=== PATIENT | male | born 1930 | race Caucasian/White ===

== ENCOUNTER 2016-09-11 14:04 | Inpatient (IN) | payer MEDICARE, OTHER ==
[2016-09-11] MEDS ORDERED: SODIUM CHLORIDE 0.9% 500 ML INFUS.BAG IV ONE (14:23)
--- NOTE | 2016-09-11 14:56 | PDOC ---
History of Present Illness - General Chief Complaint: Pain Stated Complaint: ABD PAIN Time Seen by Provider: 09/11/16 14:14 History Source: Patient Exam Limitations: No Limitations - History of Present Illness Travel History: No Initial Comments: 09/11/16 20:06 The patient is a 86 year old male, with a significant past medical history of HTN, BPH, GERD, afib on xerolto, who presents to the emergency department with right testicular hernia for 6 weeks. He ranks his pain a 8/10 in pain intensity. He also notes having a significant loss of appetite. Patient notes also having diarrhea for the past couple of days without any abdomonial pain. He denies any recent fevers, chills, headache or dizziness. He denies any recent nausea, vomit, or constipation. Patient is a poor historian. Allergies: NKA Past surgical history: Appendectomy. Social History: Nonsmoker. Denies EtOH and drug use. PCP: Past History - Past Medical History Allergies/Adverse Reactions: Allergies Allergy/AdvReac Type Severity Reaction Status Date / Time No Known Allergies Allergy Verified 09/11/16 14:17 Home Medications: Ambulatory Orders Amlodipine Bes/Olmesartan Med [Lisa 5-40 mg Tablet] 1 each PO DAILY 02/02/13 Multivitamin [Multivitamins] 1 each PO DAILY 02/02/13 [place]-3 Acid Ethyl Esters [Lovaza] 2,000 mg PO BID 02/02/13 Aspirin [ASA -] 81 mg PO DAILY #0 tab.chew 02/09/13 Carvedilol Phosphate [Coreg Cr -] 40 mg PO DAILY #0 capsule.sa 02/09/13 Megestrol Acetate Oral Susp [Megace Oral Suspension -] 200 mg PO DAILY #0 cup Multivitamins [Multivit ([facility] Formul[facility])] 1 udtab PO DAILY #0 tab 02/09/13 Pantoprazole Sodium [Protonix -] 40 mg PO DAILY #0 tablet.ec 02/09/13 Polyethylene Glycol 3350 [Miralax 255 gm Btl -] 17 gm PO DAILY #1 bottle Tamsulosin HCl [Flomax -] 0.4 mg PO DAILY@0830 #0 cap.er.24h 02/09/13 Ursodiol [Actigal -] 300 mg PO TIDCM #0 capsule 02/09/13 Olmesartan/Hydrochlorothiazide [Olmesartan-Hctz 20-12.5 mg Tab] 1 each PO DAILY 09/11/16 Rivaroxaban [Xarelto -] 20 mg PO DAILY 09/11/16 Disorders: Yes HTN: Yes - Surgical History Abdominal Surgery: Yes Appendectomy: Yes - Psycho/Social/Smoking Cessation Hx Suicidal Ideation: No Smoking Status: No Smoking History: Never smoked Have you smoked in the past 12 months: No Number of Cigarettes Smoked Daily: 0 Hx Alcohol Use: No Drug/Substance Use Hx: No Substance Use Type: None Hx Substance Use Treatment: No Review of Systems - Review of Systems Able to Perform ROS?: Yes Comments:: 09/11/16 20:07 CONSTITUTIONAL: +Loss of appetite. generalized weakness No reported: Fever, Chills, Diaphoresis , HEENT: No reported: Rhinorrhea, Nasal Congestion, Throat Pain, Throat Swelling, Difficulty Swallowing, Mouth Swelling, Ear Pain, Eye Pain, Visual Changes CARDIOVASCULAR: No reported: Chest Pain, Syncope, Palpitations, Irregular Heart Rate, Lightheadedness, Peripheral Edema RESPIRATORY: No reported: Cough, Shortness of Breath, SOB with Exertion, Orthopnea, Wheezing , Stridor, Hemoptysis GASTROINTESTINAL: +diarrhea. No reported: Abdominal pain, Abdominal Distension, Nausea, Vomiting, , Constipation, Melena, Hematochezia GENITOURINARY: +testicular hernia. No reported: Dysuria, Frequency, Urgency, Hesitancy, Flank Pain, Genital Pain MUSCULOSKELETAL: No reported: Myalgia, Arthralgia, Joint Swelling, Back pain, Neck Pain SKIN: No reported: Rash, Itching, Pallor HEMEATOLOGIC/IMMUNOLOGIC: No reported: Easy Bleeding, Easy Bruising, Lymphadenopathy, Frequent infections ENDOCRINE: No reported: Unexplained Weight Gain, Unexplained Weight Loss, Heat Intolerance , Cold Intolerance NEUROLOGIC: No reported: Headache, Focal Weakness, Paresthesias, Vertigo, Lightheadedness, Unsteady Gait, Seizure, Mental Status Changes, Incontinence PSYCHIATRIC: No reported: Anxiety, Depression *Physical Exam - Vital Signs Last Vital Signs Temp Pulse Resp BP Pulse Ox 97.8 F 112 H 20 85/54 96 09/11/16 14:17 09/11/16 14:17 09/11/16 14:17 09/11/16 14:17 09/11/16 14:17 - Physical Exam Comments: 09/11/16 20:07 GENERAL: The patient is awake, alert, and fully oriented, Nontoxic - in no acute distress. HEAD: Normocephalic, atraumatic. EYES: extraocular movements intact, sclera anicteric, conjunctiva clear. ENT: Normal voice, dry mucous membranes. NECK: Normal range of motion, supple LUNGS: Breath sounds equal, clear to auscultation bilaterally. No wheezes, no rhonchi, no rales. HEART: tachycardic, slightly irregular ABDOMEN: Mildliy distended abdomen, nontender, no rebound/guarding, no cva tenderness : large mass in R scrotum, nontender, soft, able to reduce components of contents, but mass still present. No significant erythema/induration/tenderness EXTREMITIES: Normal range of motion NEUROLOGICAL: No facial assymetry, Normal speech, moving all 4 extremities spontaneously and symmetrically PSYCH: Normal mood, normal affect. SKIN: Warm, Dry, normal turgor, Heart Score/ECG Review - ECG Impressions Comment:: 09/11/16 17:59 Twelve-lead EKG was performed and reviewed by me. Rate of [address] wave changes ED Treatment Course - LABORATORY CBC & Chemistry Diagram: 09/11/16 15:00 09/11/16 15:00 Medical Decision Making - Medical Decision Making 09/11/16 14:55 86y M hx htn, bph, presents with feeling very fatigued/weak. The patient denies any vomiting, fever/chills, +episode of diarrhea pts abdomen is soft nontender, pt has a mass i the R inguinal/testicular area that is nontender, +soft reducible mass. however there is still some swelling present. ?orchitis, hernia pts vitals noted to be tachycardic as well as mildly hypotensive will ck labs will reassess A portion of this note was documented by scribe services under my direction. I have reviewed the details of the note, within reason, and agree with the documentation with the following case summary and management plan written by me 09/11/16 17:11 pts labs reviewed noted for leukocytosis to 18 with left shift chemistry noted for significant radha, possibly prerenal pts ekg shows afib - unclearif pt has history of afib - but pt is on xerolto awaiting CT abdomen pt getting fluids for hydration 09/11/16 18:[address] of the abdomen reveals a large right inguinal hernia without any signs of obstruction 09/11/16 18:21 pt also complainng of diarrhea in light of his luekocytosis will give the pt some abx will admit for furthe rmanagement of radha page placed to dr. lorenz to ck to see what his baseline renal status is and whether he has known afib (suspect he does as he is on a novel a/c). 09/11/16 19:[address] Lorenz (PMD) pt has known afib last labs 04/2016 - Cr. 1.0 09/11/16 19:[address] rochelle dunlap with admission and further management of dehydration/radha, Case discussed in detail with admitting physician including history, physical exam and ancillary studies. Admitting physician has assumed care for the patient, will follow all pending diagnostics and will complete the evaluation and treatment. 09/11/16 20:09 *DC/Admit/Observation/Transfer Diagnosis at time of Disposition: Inguinal hernia, right Diarrhea Qualifiers: Diarrhea type: unspecified type Qualified Code(s): R19.7 - Diarrhea, unspecified Acute renal failure Qualifiers: Acute renal failure type: unspecified Qualified Code(s): N17.9 - Acute kidney failure, unspecified Atrial fibrillation Qualifiers: Atrial fibrillation type: chronic Qualified Code(s): I48.2 - Chronic atrial fibrillation - Discharge Dispostion Condition at time of disposition: Guarded Admit: Yes - Referrals Referrals: Sera Lorenz MD [Primary Care Provider] -
[2016-09-11 15:06] LABS: BASOPHIL 0.2 % (0-2.0); EOSINOPHIL 0.1 % (0-4.5); MCHC 34.2 g/dl (32.0-35.9); MEAN CELL VOLUME 87.8 fl (80-96); MEAN PLT VOLUME 10.3 fl (7.5-11.1); NEUTROPHILS 90.7 % (42.8-82.8); PLATELET COUNT 347 K/MM3 (134-434); RDW 15.1 % (11.9-15.9); WHITE BLOOD COUNT 18.3 K/mm3 (4.0-10.0)
[2016-09-11 15:21] LABS: INR 2.12 (0.82-1.09); PROTHROMBIN TIME (PATIENT) 23.7 SEC (9.98-11.88)
[2016-09-11 15:30] LABS: ALBUMIN 2.8 g/dl (3.4-5.0); BILIRUBIN,TOTAL 1.2 mg/dL (0.2-1.0); CALCIUM 8.6 mg/dL (8.5-10.1); CREATININE 4.6 mg/dL (0.7-1.3)
[2016-09-11] MEDS ORDERED: LEVOFLOXACIN 750 MG IVPB 150 ML IVPB ONE (18:20)
[2016-09-11] MEDS ORDERED: METRONIDAZOLE 500 MG PREMIXED 100 ML IVPB ONE ×2 (18:20→18:42)
[2016-09-11] MEDS ORDERED: LEVOFLOXACIN 500 MG IVPB 100 ML IVPB ONE (18:42)
[2016-09-11] MEDS ORDERED: LEVOFLOXACIN 250 MG IVPB 50 ML IVPB ONE (18:43)
[2016-09-11] MEDS ORDERED: ACETAMINOPHEN 325 MG TABLET (FP) PO PRN (23:26)
[2016-09-11] MEDS ORDERED: SODIUM CHLORIDE 0.45%/POT 1,000 ML IV SCH (23:45)
[2016-09-12 02:59] VITALS: BMI 30.1
[2016-09-12 07:26] LABS: BASOPHIL 0.4 % (0-2.0); EOSINOPHIL 0.3 % (0-4.5); MCH 29.6 pg (25.7-33.7); MCHC 33.5 g/dl (32.0-35.9); MEAN CELL VOLUME 88.2 fl (80-96); MEAN PLT VOLUME 10.2 fl (7.5-11.1); NEUTROPHILS 86.8 % (42.8-82.8); PLATELET COUNT 333 K/MM3 (134-434); WHITE BLOOD COUNT 11.2 K/mm3 (4.0-10.0)
[2016-09-12 07:57] LABS: ALBUMIN 2.3 g/dl (3.4-5.0); CALCIUM 8.2 mg/dL (8.5-10.1); CREATININE 2.8 mg/dL (0.7-1.3); TOT PROT 5.9 g/dl (6.4-8.2)
--- NOTE | 2016-09-12 09:17 | HP ---
Admitting History and Physical - Admission History of Present Illness: 86 year old male, with a significant past medical history of HTN, BPH, GERD, afib on xerolto, who presents to the emergency department with right inguinal hernia for 6 weeks. He ranks his pain a 8/10 in pain intensity. He also notes having a significant loss of appetite. Patient notes also having diarrhea for the past couple of days without any abdominal pain. He denies any recent fevers , chills, headache or dizziness. He denies any recent nausea, vomit, or constipation. Patient is a poor historian. - Past Medical History Cardiovascular: Yes: AFIB, HTN, Hyperlipdemia Gastrointestinal: Yes: GERD Renal/: Yes: BPH - Smoking History Smoking history: Never smoked Have you smoked in the past 12 months: No Aproximately how many cigarettes per day: 0 - Alcohol/Substance Use Hx Alcohol Use: No Home Medications - Allergies Allergies/Adverse Reactions: Allergies Allergy/AdvReac Type Severity Reaction Status Date / Time No Known Allergies Allergy Verified 09/11/16 14:17 - Home Medications Home Medications: Ambulatory Orders Amlodipine Bes/Olmesartan Med [Lisa 5-40 mg Tablet] 1 each PO DAILY 02/02/13 Multivitamin [Multivitamins] 1 each PO DAILY 02/02/13 [place]-3 Acid Ethyl Esters [Lovaza] 2,000 mg PO BID 02/02/13 Aspirin [ASA -] 81 mg PO DAILY #0 tab.chew 02/09/13 Carvedilol Phosphate [Coreg Cr -] 40 mg PO DAILY #0 capsule.sa 02/09/13 Megestrol Acetate Oral Susp [Megace Oral Suspension -] 200 mg PO DAILY #0 cup Multivitamins [Multivit ([facility] Form[facility])] 1 udtab PO DAILY #0 tab 02/09/13 Pantoprazole Sodium [Protonix -] 40 mg PO DAILY #0 tablet.ec 02/09/13 Polyethylene Glycol 3350 [Miralax 255 gm Btl -] 17 gm PO DAILY #1 bottle Tamsulosin HCl [Flomax -] 0.4 mg PO DAILY@0830 #0 cap.er.24h 02/09/13 Ursodiol [Actigal -] 300 mg PO TIDCM #0 capsule 02/09/13 Olmesartan/Hydrochlorothiazide [Olmesartan-Hctz 20-12.5 mg Tab] 1 each PO DAILY 09/11/16 Rivaroxaban [Xarelto -] 20 mg PO DAILY 09/11/16 Olmesartan-Hctz 40-12.5 mg Tab mg PO DAILY 09/12/16 Olodaterol HCl 0.7 drop OU DAILY 09/12/16 Review of Systems - Review of Systems Cardiovascular: denies: Chest Pain Respiratory: denies: SOB Gastrointestinal: reports: Abdominal Pain, Diarrhea Genitourinary: reports: Testicular Pain, Testicular Swelling Musculoskeletal: reports: Muscle Weakness Neurological: reports: Weakness Physical Examination Vital Signs: Vital Signs Temperature 97.7 F 09/12/16 07:00 Pulse Rate 101 H 09/12/16 07:00 Respiratory Rate 22 09/12/16 07:00 Blood Pressure 86/57 09/12/16 07:00 O2 Sat by Pulse Oximetry (%) 97 09/11/16 23:00 Neck: Yes: Supple Cardiovascular: Yes: S1, S2 Respiratory: Yes: Regular, CTA Bilaterally, Diminished Gastrointestinal: Yes: Normal Bowel Sounds, Soft, Hernia (RT), Tenderness Labs: CBC, BMP 09/12/16 06:10 09/12/16 06:10 Imaging - Results Cat Scan: Report Reviewed Problem List - Problems (1) Acute renal failure Assessment/Plan: IVF MONITOR RENAL FUNCTION RENAL CONSULT Code(s): N17.9 - ACUTE KIDNEY FAILURE, UNSPECIFIED Qualifiers: Acute renal failure type: unspecified Qualified Code(s): N17.9 - Acute kidney failure, unspecified (2) Atrial fibrillation Assessment/Plan: HOLD XARELTO--CARDIO--BRIDGE WITH HEPARIN VS LOVENOX MONITOR RATE LAST STRESS TEST [address] SALINAS--NOT SEEN ANYONE SINCE Code(s): I48.91 - UNSPECIFIED ATRIAL FIBRILLATION Qualifiers: Atrial fibrillation type: chronic Qualified Code(s): I48.2 - Chronic atrial fibrillation (3) Diarrhea Assessment/Plan: GI CONSULT Code(s): R19.7 - DIARRHEA, UNSPECIFIED Qualifiers: Diarrhea type: unspecified type Qualified Code(s): R19.7 - Diarrhea, unspecified (4) Inguinal hernia, right Assessment/Plan: SURGICAL CONSULT Code(s): K40.90 - UNIL INGUINAL HERNIA, W/O OBST OR GANGR, NOT SPCF RECUR (5) Pneumonia Assessment/Plan: IV ABX ID CONSULT CXR Code(s): J18.9 - PNEUMONIA, UNSPECIFIED ORGANISM (6) Sepsis Assessment/Plan: IV ABX/IVF ID MONITOR Code(s): A41.9 - SEPSIS, UNSPECIFIED ORGANISM
[2016-09-12] MEDS ORDERED: RIVAROXABAN 20 MG TABLET PO SCH (10:00)
[2016-09-12] MEDS ORDERED: INFLUENZA VACCINE 45 MCG/0.5 ML (MDV 16-17) IM ONE (10:00)
[2016-09-12] MEDS ORDERED: CARVEDILOL PHOSPHATE CR 40 MG CAPSULE (FP) PO SCH (10:00)
[2016-09-12] MEDS ORDERED: MULTIVITAMIN PO SCH (10:00)
[2016-09-12] MEDS ORDERED: PNEUMOC 13-VAL CONJ-DIP CRM/PF 0.5 ML DISP.SYRIN IM ONE (10:00)
[2016-09-12] MEDS ORDERED: PT OWN MED DRAWER 7, Y5N ONE (10:03)
[2016-09-12] MEDS: ASPIRIN 81 MG CHEWABLE TABLETS PO SCH (10:09)
[2016-09-12] MEDS: MULTIVITAMINS (DAILY MVI) TABLET (FP) PO SCH (10:09)
[2016-09-12] MEDS: PANTOPRAZOLE 40 MG TABLET (FP) PO SCH (10:09)
[2016-09-12] MEDS: TAMSULOSIN HCL 0.4 MG CAP.ER.24H (FP) PO SCH (10:09)
[2016-09-12] MEDS: URSODIOL 300 MG CAPSULE PO SCH ×3 (10:09→18:08)
[2016-09-12] MEDS: MEGESTROL ACETATE 400 MG/10 ML UNIT DOSE CUP PO SCH (10:15)
--- NOTE | 2016-09-12 11:46 | CONSULT ---
- Consultation REQUESTING PROVIDER: General Surgery-Dr. Srivastava CONSULT REQUEST: We have been asked to surgically evaluate this patient for right inguinal pain. PCP:Kenneth Fofana HISTORY OF PRESENT ILLNESS: History taken with [employer] system, intrepreter number [id number]. The patient is a 86 yo male who comes to the ER with complaints of dizziness, diarrhea, weakness and right inguinal ovalle. He states that he has had non-bloody diarrhea for approximately 5 weeks, going 3 to 4 times per day. Also, it was noted that he noticed a right groin mass approximately 6 weeks ago. It was hurting him upon admission but now feels better, only hurting with movement. The patient denies any hematuria, dysuria, fevers or recent antibiotic use. He has no nausea or emesis and ate a regular diet today. No CP or SOB. PMHx: AFIB, HTN, Hyperlipdemia GERD, BPH, no h/o DVT PSHx: exp lap for bowel strangulation, appendix, left inguinal hernia Home Medications Medication Instructions Recorded Amlodipine Bes/Olmesartan Med 1 each PO DAILY 02/02/13 [Lisa 5-40 mg Tablet] Multivitamin [Multivitamins] 1 each PO DAILY 02/02/13 [place]-3 Acid Ethyl Esters [Lovaza] 2,000 mg PO BID 02/02/13 Aspirin [ASA -] 81 mg PO DAILY #0 tab.chew 02/09/13 Carvedilol Phosphate [Coreg Cr -] 40 mg PO DAILY #0 capsule.sa 02/09/13 Megestrol Acetate Oral Susp 200 mg PO DAILY #0 cup 02/09/13 [Megace Oral Suspension -] Multivitamins [Multivit ([facility] 1 udtab PO DAILY #0 tab 02/09/13 Formulary)] Pantoprazole Sodium [Protonix -] 40 mg PO DAILY #0 tablet.ec 02/09/13 Polyethylene Glycol 3350 [Miralax 17 gm PO DAILY #1 bottle 02/09/13 255 gm Btl -] Tamsulosin HCl [Flomax -] 0.4 mg PO DAILY@0830 #0 cap.er.24h 02/09/13 Ursodiol [Actigal -] 300 mg PO TIDCM #0 capsule 02/09/13 Olmesartan/Hydrochlorothiazide 1 each PO DAILY 09/11/16 [Olmesartan-Hctz 20-12.5 mg Tab] Rivaroxaban [Xarelto -] 20 mg PO DAILY 09/11/16 Olmesartan-Hctz 40-12.5 mg Tab mg PO DAILY 09/12/16 Olodaterol HCl 0.7 drop OU DAILY 09/12/16 Allergies Allergy/AdvReac Type Severity Reaction Status Date / Time No Known Allergies Allergy Verified 09/11/16 14:17 REVIEW OF SYSTEMS: CONSTITUTIONAL: Absent: fever, chills Present: generalized weakness CARDIOVASCULAR: Absent: chest pain, syncope Present: irregular heart rate RESPIRATORY: Absent: cough, shortness of breath GASTROINTESTINAL: Absent: nausea, vomiting Present: diarrhea, right inguinal pain GENITOURINARY: Absent: dysuria, hematuria MUSCULOSKELETAL: Absent: myalgia, arthralgia, joint swelling, back pain, neck pain SKIN: Absent: rash, itching, pallor HEMATOLOGIC/IMMUNOLOGIC: Absent: easy bleeding, easy bruising, lymphadenopathy NEUROLOGIC: Present: dizziness Absent: Seizures PHYSICAL EXAM: GENERAL: Awake, alert, and fully oriented, in no acute distress. HEAD: Normal with no signs of trauma. EYES: PERRL, sclera anicteric, conjunctiva clear. NECK: Normal ROM, supple without lymphadenopath. LUNGS: Clear to auscultation bilat anteriorly. No wheezes, and no crackles. HEART: irregular rhythm, rate slightly tachy. ABDOMEN: Soft, nontender, not distended. Non-reducible RIH, non-tender, non erythema to the skin. MUSCULOSKELETAL: Normal ROM at all joints. No bony deformities or tenderness. No CVA tenderness. UPPER EXTREMITIES: 2+ pulses, warm, well-perfused. No cyanosis. Cap refill <2 seconds. No peripheral edema. LOWER EXTREMITIES: 2+ pulses, warm, well-perfused. No calf tenderness. No peripheral edema. NEUROLOGICAL: Normal speech, gait not observed. PSYCH: Cooperative. Good eye contact. Appropriate mood and affect. SKIN: Warm, dry, normal turgor. Vital Signs Temperature 98 F 09/12/16 10:16 Pulse Rate 104 H 09/12/16 10:16 Respiratory Rate 22 09/12/16 10:16 Blood Pressure 102/57 09/12/16 10:16 O2 Sat by Pulse Oximetry (%) 97 09/11/16 23:00 Lab Results WBC 11.2 K/mm3 (4.0-10.0) H D 09/12/16 06:10 RBC 3.87 M/mm3 (4.00-5.60) L 09/12/16 06:10 Hgb 11.4 GM/dL (11.7-16.9) L 09/12/16 06:10 Hct 34.1 % (35.4-49) L 09/12/16 06:10 MCV 88.2 fl (80-96) 09/12/16 06:10 MCHC 33.5 g/dl (32.0-35.9) 09/12/16 06:10 RDW 15.0 % (11.9-15.9) 09/12/16 06:10 Plt Count 333 K/MM3 (134-434) 09/12/16 06:10 Sodium 135 mmol/L (136-145) L 09/12/16 06:10 Potassium 3.9 mmol/L (3.5-5.1) 09/12/16 06:10 Chloride 100 mmol/L (98-107) 09/12/16 06:10 Carbon Dioxide 21 mmol/L (21-32) 09/12/16 06:10 Anion Gap 14 (8-16) 09/12/16 06:10 BUN 69 mg/dL (7-18) H 09/12/16 06:10 Creatinine 2.8 mg/dL (0.7-1.3) H D 09/12/16 06:10 Random Glucose 85 mg/dL (74-106) D 09/12/16 06:10 Calcium 8.2 mg/dL (8.5-10.1) L 09/12/16 06:10 Blood Type O POSITIVE 09/12/16 09:20 Antibody Screen Negative 09/11/16 15:05 INR 2.12 (0.82-1.09) H D 09/11/16 15:00 Laboratory Tests 09/11/16 09/11/16 09/11/16 15:00 15:00 15:00 WBC 18.3 H D INR 2.12 H D BUN 74 H D Creatinine 4.6 H D Total Bilirubin 1.2 H CXR- b/l pleural effusion CT scan: right inguinal hernia containing cecum/ileum. No evidence of obstruction, inta-abd collections, pneumoperitoneum Problem List - Problems (1) Inguinal hernia, right Assessment/Plan: Pt with non-reducible, non-tender right inguinal hernia, no evidence of strangulation. Recommend to have repair of hernia on this admission. Spoke with Dr. Srivastava and will schedule for surgery possibly this Saturday, he was given his dose of xarelto today and had lunch. Informed Dr. Fofana of the surgical plan and he will hold the xarelto and proceed when the patient is medically optimized/cleared for surgery. Continue diet as tolerated Code(s): K40.90 - UNIL INGUINAL HERNIA, W/O OBST OR GANGR, NOT SPCF RECUR Visit type - Case Type Case Type: ED Admission - Emergency Emergency Visit: Yes ED Registration Date: 09/11/16 Care time: The patient presented to the Emergency Department on the above date and was hospitalized for further evaluation of their emergent condition. - New patient This patient is new to me today: Yes Date on this admission: 09/12/16 - Critical Care Critical Care patient: No
--- NOTE | 2016-09-12 12:12 | PN ---
Progress Note (short form) - Note Progress Note: ID Consult dictated Large R inguinal hernia Leukocytosis- leukemoid rxn v. sepsis Possible pneumonia v. compressive atelectasis Diarrhea Obtain BC, U/A, c/s Stool studies Empiric ceftriaxone
[2016-09-12] MEDS ORDERED: CEFTRIAXONE 50 ML IVPB SCH (12:15)
--- NOTE | 2016-09-12 13:48 | EKG ---
Test Reason : Blood Pressure : / mmHG Vent. Rate : 124 BPM Atrial Rate : 170 BPM P-R Int : 000 ms QRS Dur : 098 ms QT Int : 280 ms P-R-T Axes : 000 -26 004 degrees QTc Int : 402 ms ATRIAL FIBRILLATION WITH RAPID VENTRICULAR RESPONSE ABNORMAL ECG WHEN COMPARED WITH ECG OF 02-FEB-2013 15:15, ATRIAL FIBRILLATION HAS REPLACED SINUS RHYTHM VENT. RATE HAS INCREASED BY 53 BPM Confirmed by BRAYDEN SANDS, JOAQUINA ([id number]) on 09/12/2016 1:47:57 PM Referred By: Confirmed By:JOAQUINA OWEN MD
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
[2016-09-12] MEDS: CEFTRIAXONE 50 ML IVPB SCH (13:54)
--- NOTE | 2016-09-12 17:46 | CONS ---
DATE OF CONSULTATION: DATE OF DICTATION: 09/12/2016 INFECTIOUS DISEASE CONSULTATION HISTORY OF PRESENT ILLNESS: An 86-year-old male evaluated for possible pneumonia. He was admitted to the hospital on September 11, 2016, with a worsening right inguinal hernia. Patient reports long history of right inguinal hernia which got worse. He also had some complaints of generalized weakness and fatigue as well as loose nonbloody bowel movements. He presented to the emergency room where he was noted to be clinically dehydrated and hypotensive. In addition, the patient had an elevated white blood cell count of 18,000 and acute renal failure. CAT scan of the abdomen and pelvis was performed and showed a large right inguinal hernia, with bibasilar consolidations and pleural effusion. He is awake and alert. He has no complaints of abdominal pain at the present time. He has been moving his bowels, in fact has had loose bowel movements. He denies any abdominal pain, vomiting, no complaints of fever or chills. He denies any shortness of breath or cough. PAST MEDICAL HISTORY: Positive for osteoarthritis, hypertension, hyperlipidemia, gastroesophageal reflux, low back pain, BPH. PAST SURGICAL HISTORY: Status post small bowel obstruction, exploratory laparotomy 2009, appendectomy, left inguinal hernia, left foot surgery, hemorrhoidectomy. ALLERGIES: No known allergies. MEDICATION: Aspirin, Norvasc, Coreg, Protonix, Flomax, hydrochlorothiazide. SOCIAL HISTORY: Lives at home. Denies any ill contacts. Denies any recent travel or antibiotic usage. SYSTEMS REVIEW: Neurologic: No loss of consciousness, seizure activity, or focal weakness. Cardiac: Negative chest pain or palpitations. Respiratory: Negative cough or sputum production. Gastrointestinal: As per HPI. Genitourinary: Negative for urinary tract infection. LABORATORY DATA: White count 18.3, 90 neutrophils, 4 lymphocytes, 5 monocytes, hematocrit 34.1, platelet count 333, BUN 69, creatinine 2.8. PHYSICAL EXAMINATION: General: He is out of bed to chair. He is in no acute distress. Vital signs: Temperature 98, blood pressure 102/57, pulse 104 regular, respirations 22 per minute. HEENT: Sclerae anicteric. Cardiovascular: Heart sounds S1, S2. Respiratory: Lungs clear. Abdomen: Soft. No tenderness elicited. No mass, rebound, or rigidity. Reducible rate. Reduced right inguinal hernia. Extremities: 1+ edema. IMPRESSION: 1. Large right inguinal hernia. 2. Leukocytosis, possible leukemoid reaction versus sepsis. 3. Possible pneumonia versus compressive atelectasis. 4. Diarrhea. 5. Renal failure/dehydration. Will obtain blood cultures, await urinalysis and urine culture, obtain stool studies including stool culture, C. difficile, ova and parasites, rota antigen and noro PCR, followup chest x-ray, empiric antibiotic coverage with ceftriaxone daily, IV fluid hydration. Thank you for the kind referral. MAKI FELIPE M.D. [id number]
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
[2016-09-12 20:38] LABS: URINE APPEARANCE SLCLOUDY; URINE BILIRUBIN NEGATIVE (NEGATIVE); URINE COLOR YELLOW; URINE GLUCOSE (UA) NEGATIVE (NEGATIVE); URINE KETONE NEGATIVE (NEGATIVE); URINE NITRITE POSITIVE (NEGATIVE); URINE PROTEIN NEGATIVE (NEGATIVE); URINE UROBILINOGEN NEGATIVE E.U./dl (0.2-1.0)
[2016-09-12 20:45] LABS: URINE BLOOD 1+ (NEGATIVE); URINE LEUK ESTERASE 3+ (NEGATIVE)
[2016-09-12] MEDS ORDERED: SODIUM CHLORIDE 250 ML IV ONE (20:45)
[2016-09-12 20:46] LABS: URINE BACTERIA MANY /hpf (NONE SEEN); URINE HYALINE CAST 3 /lpf; URINE MUCUS RARE; URINE RBC 1 /hpf (0-3); URINE WBC 118 /hpf (3-5)
[2016-09-12] MEDS: D5-1/2NS+20 MEQ KCL - 1,000 ML IV SCH (21:43)
[2016-09-13 07:22] LABS: BASOPHIL 0.8 % (0-2.0); EOSINOPHIL 0.3 % (0-4.5); MCH 30.1 pg (25.7-33.7); MCHC 34.3 g/dl (32.0-35.9); MEAN CELL VOLUME 87.8 fl (80-96); MEAN PLT VOLUME 10.1 fl (7.5-11.1); NEUTROPHILS 83.8 % (42.8-82.8); PLATELET COUNT 349 K/MM3 (134-434); RDW 14.9 % (11.9-15.9); WHITE BLOOD COUNT 10.9 K/mm3 (4.0-10.0)
[2016-09-13 07:53] LABS: ALBUMIN 2.3 g/dl (3.4-5.0); BILIRUBIN,TOTAL 0.9 mg/dL (0.2-1.0); CALCIUM 8.2 mg/dL (8.5-10.1); CREATININE 1.9 mg/dL (0.7-1.3); TOT PROT 5.9 g/dl (6.4-8.2)
--- NOTE | 2016-09-13 08:37 | PN ---
Progress Note, Physician History of Present Illness: FEELS BETTER - Current Medication List Current Medications: Active Medications Acetaminophen (Tylenol -) 650 mg PO Q4H PRN PRN Reason: FEVER OR PAIN Aspirin (Asa -) 81 mg PO DAILY [facility] Last Admin: 09/12/16 10:09 Dose: 81 mg Ceftriaxone Sodium (Rocephin 1gm Ivpb (Pre-Docked)) 50 mls @ 200 mls/hr IVPB DAILY [facility] Last Admin: 09/12/16 13:54 Dose: 200 mls/hr Potassium Chloride/Dextrose/Sod Cl (D5-1/2ns+20 Meq Kcl -) 1,000 mls @ 75 mls/ hr IV ASDIR [facility] Last Admin: 09/12/16 21:43 Dose: 75 mls/hr Megestrol Acetate (Megace Oral Suspension -) 200 mg PO DAILY [facility] Last Admin: 09/12/16 10:15 Dose: Not Given Metoprolol Succinate (Toprol Xl -) 100 mg PO DAILY [facility] Multivitamins/Minerals/Vitamin C (Tab-A-Vit -) 1 tab PO DAILY [facility] Last Admin: 09/12/16 10:09 Dose: 1 tab Pantoprazole Sodium (Protonix -) 40 mg PO DAILY [facility] Last Admin: 09/12/16 10:09 Dose: 40 mg Tamsulosin HCl (Flomax -) 0.4 mg PO DAILY@0830 [facility] Last Admin: 09/12/16 10:09 Dose: 0.4 mg Ursodiol (Actigal -) 300 mg PO TIDCM [facility] Last Admin: 09/12/16 18:08 Dose: 300 mg - Objective Vital Signs: Vital Signs Temperature 97.7 F 09/13/16 06:00 Pulse Rate 106 H 09/13/16 06:00 Respiratory Rate 18 09/13/16 06:00 Blood Pressure 97/63 09/13/16 06:00 O2 Sat by Pulse Oximetry (%) 96 09/12/16 21:00 Cardiovascular: Yes: Regular Rate and Rhythm Respiratory: Yes: Regular, CTA Bilaterally Gastrointestinal: Yes: Normal Bowel Sounds, Soft. No: Tenderness Edema: No Labs: CBC, BMP 09/13/16 05:35 09/13/16 05:35 INR, PTT INR 2.12 (0.82-1.09) H D 09/11/16 15:00 Problem List - Problems (1) Acute renal failure Assessment/Plan: IVF MONITOR RENAL FUNCTION Code(s): N17.9 - ACUTE KIDNEY FAILURE, UNSPECIFIED Qualifiers: Acute renal failure type: unspecified Qualified Code(s): N17.9 - Acute kidney failure, unspecified (2) Atrial fibrillation Assessment/Plan: HOLD XARELTO--CARDIO--BRIDGE WITH HEPARIN VS LOVENOX MONITOR RATE LAST STRESS TEST 2013 NEGATIVE Code(s): I48.91 - UNSPECIFIED ATRIAL FIBRILLATION Qualifiers: Atrial fibrillation type: chronic Qualified Code(s): I48.2 - Chronic atrial fibrillation (3) Inguinal hernia, right Assessment/Plan: SURGICAL CONSULT NOTED POSSIBLE OR IN AM Code(s): K40.90 - UNIL INGUINAL HERNIA, W/O OBST OR GANGR, NOT SPCF RECUR (4) Sepsis Assessment/Plan: IV ABX/IVF ID MONITOR Code(s): A41.9 - SEPSIS, UNSPECIFIED ORGANISM
[2016-09-13] MEDS ORDERED: PT OWN MED DRAWER 7, Y5N ONE ×3 (08:43→18:07)
[2016-09-13] MEDS ORDERED: METOPROLOL SUCCINATE 100 MG TAB.SR.24H (FP) PO SCH (10:00)
[2016-09-13] MEDS: ASPIRIN 81 MG CHEWABLE TABLETS PO SCH (10:40)
[2016-09-13] MEDS: MEGESTROL ACETATE 400 MG/10 ML UNIT DOSE CUP PO SCH (10:40)
[2016-09-13] MEDS: PANTOPRAZOLE 40 MG TABLET (FP) PO SCH (10:40)
[2016-09-13] MEDS: URSODIOL 300 MG CAPSULE PO SCH ×3 (10:40→18:08)
[2016-09-13] MEDS: CEFTRIAXONE 50 ML IVPB SCH (10:40)
[2016-09-13] MEDS: TAMSULOSIN HCL 0.4 MG CAP.ER.24H (FP) PO SCH (10:40)
[2016-09-13] MEDS: MULTIVITAMINS (DAILY MVI) TABLET (FP) PO SCH (10:40)
[2016-09-13] MEDS: D5-1/2NS+20 MEQ KCL - 1,000 ML IV SCH ×2 (10:41→20:22)
[2016-09-13] MEDS: METOPROLOL SUCCINATE 100 MG TAB.SR.24H (FP) PO SCH (10:50)
--- NOTE | 2016-09-13 13:59 | PN ---
Progress Note, Physician History of Present Illness: No new complaints. Denies chest pain or dyspnea. - Current Medication List Current Medications: Active Medications Acetaminophen (Tylenol -) 650 mg PO Q4H PRN PRN Reason: FEVER OR PAIN Aspirin (Asa -) 81 mg PO DAILY [facility] Last Admin: 09/13/16 10:40 Dose: 81 mg Ceftriaxone Sodium (Rocephin 1gm Ivpb (Pre-Docked)) 50 mls @ 200 mls/hr IVPB DAILY [facility] Last Admin: 09/13/16 10:40 Dose: 200 mls/hr Potassium Chloride/Dextrose/Sod Cl (D5-1/2ns+20 Meq Kcl -) 1,000 mls @ 75 mls/ hr IV ASDIR [facility] Last Admin: 09/13/16 10:41 Dose: 75 mls/hr Megestrol Acetate (Megace Oral Suspension -) 200 mg PO DAILY [facility] Last Admin: 09/13/16 10:40 Dose: Not Given Metoprolol Succinate (Toprol Xl -) 100 mg PO DAILY [facility] Last Admin: 09/13/16 10:50 Dose: Not Given Multivitamins/Minerals/Vitamin C (Tab-A-Vit -) 1 tab PO DAILY [facility] Last Admin: 09/13/16 10:40 Dose: 1 tab Pantoprazole Sodium (Protonix -) 40 mg PO DAILY [facility] Last Admin: 09/13/16 10:40 Dose: 40 mg Tamsulosin HCl (Flomax -) 0.4 mg PO DAILY@0830 [facility] Last Admin: 09/13/16 10:40 Dose: 0.4 mg Ursodiol (Actigal -) 300 mg PO TIDCM [facility] Last Admin: 09/13/16 13:32 Dose: 300 mg - Objective Vital Signs: Vital Signs Temperature 97.9 F 09/13/16 12:00 Pulse Rate 100 H 09/13/16 12:00 Respiratory Rate 18 09/13/16 12:00 Blood Pressure 101/62 09/13/16 12:00 O2 Sat by Pulse Oximetry (%) 96 09/13/16 09:00 Constitutional: Yes: Well Nourished, No Distress Eyes: Yes: Conjunctiva Clear, EOM Intact HENT: Yes: Atraumatic, Normocephalic Cardiovascular: Yes: Regular Rate and Rhythm. No: JVD Respiratory: Yes: CTA Bilaterally Gastrointestinal: Yes: Normal Bowel Sounds, Soft. No: Tenderness Edema: No Labs: CBC, BMP 09/13/16 05:35 09/13/16 05:35 INR, PTT INR 2.12 (0.82-1.09) H D 09/11/16 15:00 Assessment/Plan 86 yo male with HTN, chronic atrial fibrillation (on Xarelto). Admitted with diarrhea, generalized weakness, and right inguinal pain/mass -> right inguinal hernia. Cardiology was consulted for management of atrial fibrillation. Patient is also currently pending inguinal hernia surgical repair. Patient hypotensive with acute renal failure (Cr 4.6) on admission. 09/11/16 CT abd/pelvis: Bibasilar consolidation and small right pleural effusion. Large bilateral renal cysts. Large right inguinal hernia. Currently being treated for acute renal failure with IV fluids with improvement of Cr to 1.9 today. Currently on antibiotics for empiric treatment of pneumonia. 01/11/14 Lexiscan nuclear stress test: Negative for ischemia, LVEF 61% 09/12/16 Echocardiogram: Normal LV size and systolic function. Mild to mod MR. Mild TR. Mild AR. No pulmonary hypertension. RECS: Continue metoprolol succinate 100mg po daily for afib rate control. However, patient refused med this AM. Would continue IV fluid hydration as BP and renal function are improving. Patient may proceed with inguinal hernia repair if patient agrees. However, it appears that he has not agreed to surgery yet. Will continue to follow. Please call with questions. Further recs as per renal/ID/surgery/family medicine.
--- NOTE | 2016-09-13 15:55 | PN ---
Progress Note (short form) - Note Progress Note: Surgery- Dr. Srivastava Patient seen and examined. Patient states he does not want to have surgery tomorrow, but does want to have surgery on Saturday. States he wants more time for his blood pressure to improve and go up. He states he is not having much pain. Last Vital Signs Temp Pulse Resp BP Pulse Ox 98.3 F 97 H 18 104/53 96 09/13/16 15:51 09/13/16 15:51 09/13/16 15:51 09/13/16 15:51 09/13/16 09:00 CBC, BMP 09/13/16 05:35 09/13/16 05:35 Exam: Gen: NAD Abd/groin: Soft, nontender, not distended, non-reducible right inguinal hernia without tenderness or erythema Problem List - Problems (1) Inguinal hernia, right Assessment/Plan: Right inguinal hernia, non-reducible, non-tender Plan for repair this admission, patient refusing to have surgery tomorrow because he would like more time for his BP to improve, but wants to have surgery on Saturday BP improving, 104/53, and BUN/cr improving, now 56/1.9, with IV hydration Discussed with Dr. Srivastava, discussed with OR booking, case cancelled for tomorrow and rescheduled for Saturday09/17/16 Continue diet, patient to be made NPO after midnight on Saturday Patient seen by cardiology, had echo and most recent stress test negative for ischemia, ok to proceed with surgery for inguinal hernia repair according to cardiology Code(s): K40.90 - UNIL INGUINAL HERNIA, W/O OBST OR GANGR, NOT SPCF RECUR
[2016-09-14 06:59] LABS: MCH 29.7 pg (25.7-33.7); MCHC 33.7 g/dl (32.0-35.9); MEAN CELL VOLUME 88.1 fl (80-96); MEAN PLT VOLUME 10.3 fl (7.5-11.1); PLATELET COUNT 395 K/MM3 (134-434); RDW 15.2 % (11.9-15.9); WHITE BLOOD COUNT 12.6 K/mm3 (4.0-10.0)
[2016-09-14 07:00] LABS: INR 1.62 (0.82-1.09)
[2016-09-14 07:11] LABS: ALBUMIN 2.4 g/dl (3.4-5.0); BILIRUBIN,TOTAL 0.6 mg/dL (0.2-1.0); CALCIUM 8.2 mg/dL (8.5-10.1); CREATININE 1.3 mg/dL (0.7-1.3); TOT PROT 6.1 g/dl (6.4-8.2)
--- NOTE | 2016-09-14 08:08 | PN ---
Progress Note, Physician History of Present Illness: REFUSING SURGERY TODAY STILL WITH PAIN - Current Medication List Current Medications: Active Medications Acetaminophen (Tylenol -) 650 mg PO Q4H PRN PRN Reason: FEVER OR PAIN Aspirin (Asa -) 81 mg PO DAILY [facility] Last Admin: 09/13/16 10:40 Dose: 81 mg Ceftriaxone Sodium (Rocephin 1gm Ivpb (Pre-Docked)) 50 mls @ 200 mls/hr IVPB DAILY [facility] Last Admin: 09/13/16 10:40 Dose: 200 mls/hr Potassium Chloride/Dextrose/Sod Cl (D5-1/2ns+20 Meq Kcl -) 1,000 mls @ 75 mls/ hr IV ASDIR [facility] Last Admin: 09/13/16 20:22 Dose: Not Given Megestrol Acetate (Megace Oral Suspension -) 200 mg PO DAILY [facility] Last Admin: 09/13/16 10:40 Dose: Not Given Metoprolol Succinate (Toprol Xl -) 100 mg PO DAILY [facility] Last Admin: 09/13/16 10:50 Dose: Not Given Multivitamins/Minerals/Vitamin C (Tab-A-Vit -) 1 tab PO DAILY [facility] Last Admin: 09/13/16 10:40 Dose: 1 tab Pantoprazole Sodium (Protonix -) 40 mg PO DAILY [facility] Last Admin: 09/13/16 10:40 Dose: 40 mg Tamsulosin HCl (Flomax -) 0.4 mg PO DAILY@0830 [facility] Last Admin: 09/13/16 10:40 Dose: 0.4 mg Ursodiol (Actigal -) 300 mg PO TIDCM [facility] Last Admin: 09/13/16 18:08 Dose: 300 mg - Objective Vital Signs: Vital Signs Temperature 98.9 F 09/14/16 06:00 Pulse Rate 99 H 09/14/16 06:00 Respiratory Rate 18 09/14/16 06:00 Blood Pressure 109/57 09/14/16 06:00 O2 Sat by Pulse Oximetry (%) 97 09/13/16 19:52 Neck: Yes: Supple Cardiovascular: Yes: Regular Rate and Rhythm Respiratory: Yes: Regular, CTA Bilaterally Gastrointestinal: Yes: Normal Bowel Sounds, Soft, Other (TENDER INGUINAL HERNIA) Labs: CBC, BMP 09/14/16 05:35 09/14/16 05:35 INR, PTT INR 1.62 (0.82-1.09) H 09/14/16 05:35 Problem List - Problems (1) Acute renal failure Assessment/Plan: IMPROVED IVF MONITOR RENAL FUNCTION Code(s): N17.9 - ACUTE KIDNEY FAILURE, UNSPECIFIED Qualifiers: Acute renal failure type: unspecified Qualified Code(s): N17.9 - Acute kidney failure, unspecified (2) Atrial fibrillation Assessment/Plan: HOLD XARELTO--CARDIO--BRIDGE WITH HEPARIN VS LOVENOX MONITOR RATE LAST STRESS TEST 2013 NEGATIVE Code(s): I48.91 - UNSPECIFIED ATRIAL FIBRILLATION Qualifiers: Atrial fibrillation type: chronic Qualified Code(s): I48.2 - Chronic atrial fibrillation (3) Diarrhea Assessment/Plan: GI CONSULT Code(s): R19.7 - DIARRHEA, UNSPECIFIED Qualifiers: Diarrhea type: unspecified type Qualified Code(s): R19.7 - Diarrhea, unspecified (4) Inguinal hernia, right Assessment/Plan: SURGICAL CONSULT NOTED POSSIBLE OR IN AM Code(s): K40.90 - UNIL INGUINAL HERNIA, W/O OBST OR GANGR, NOT SPCF RECUR (5) Pneumonia Assessment/Plan: IV ABX ID CONSULT NOTED Microbiology 09/12/16 13:20 Blood Culture - Preliminary Blood - Peripheral Venous NO GROWTH OBTAINED AFTER 24 HOURS, INCUBATION TO CONTINUE FOR 4 DAYS. 09/12/16 13:25 Blood Culture - Preliminary Blood - Peripheral Venous NO GROWTH OBTAINED AFTER 24 HOURS, INCUBATION TO CONTINUE FOR 4 DAYS. 09/13/16 01:20 Norovirus GI - Preliminary Stool Norovirus GII - Preliminary 09/13/16 01:20 Clostridium difficile Antigen (BREANA) - Final Stool Clostridium difficile Toxin Assay - Final CXR--ATELETASIS Code(s): J18.9 - PNEUMONIA, UNSPECIFIED ORGANISM (6) Sepsis Assessment/Plan: IV ABX/IVF ID MONITOR Code(s): A41.9 - SEPSIS, UNSPECIFIED ORGANISM
[2016-09-14] MEDS ORDERED: PT OWN MED DRAWER 7, Y5N ONE ×3 (08:41→16:34)
[2016-09-14] MEDS: URSODIOL 300 MG CAPSULE PO SCH ×3 (08:56→17:46)
[2016-09-14] MEDS: TAMSULOSIN HCL 0.4 MG CAP.ER.24H (FP) PO SCH (08:56)
[2016-09-14] MEDS: METOPROLOL SUCCINATE 100 MG TAB.SR.24H (FP) PO SCH (09:01)
[2016-09-14] MEDS: PANTOPRAZOLE 40 MG TABLET (FP) PO SCH (09:01)
[2016-09-14] MEDS: MULTIVITAMINS (DAILY MVI) TABLET (FP) PO SCH (09:01)
[2016-09-14] MEDS: CEFTRIAXONE 50 ML IVPB SCH (09:01)
[2016-09-14] MEDS: MEGESTROL ACETATE 400 MG/10 ML UNIT DOSE CUP PO SCH (09:02)
[2016-09-14] MEDS: ASPIRIN 81 MG CHEWABLE TABLETS PO SCH (09:02)
[2016-09-14 09:51] LABS: PLATELET ESTIMATE ADEQUATE (NORMAL)
[2016-09-14] MEDS: D5-1/2NS+20 MEQ KCL - 1,000 ML IV SCH (14:30)
--- NOTE | 2016-09-14 15:05 | PN ---
Progress Note, Physician History of Present Illness: No new complaints Does want surgery but on Saturday Say sit was too soon today - Current Medication List Current Medications: Active Medications Acetaminophen (Tylenol -) 650 mg PO Q4H PRN PRN Reason: FEVER OR PAIN Aspirin (Asa -) 81 mg PO DAILY [facility] Last Admin: 09/14/16 09:02 Dose: 81 mg Ceftriaxone Sodium (Rocephin 1gm Ivpb (Pre-Docked)) 50 mls @ 200 mls/hr IVPB DAILY [facility] Last Admin: 09/14/16 09:01 Dose: 200 mls/hr Potassium Chloride/Dextrose/Sod Cl (D5-1/2ns+20 Meq Kcl -) 1,000 mls @ 75 mls/ hr IV ASDIR [facility] Last Admin: 09/13/16 20:22 Dose: Not Given Megestrol Acetate (Megace Oral Suspension -) 200 mg PO DAILY [facility] Last Admin: 09/14/16 09:02 Dose: 200 mg Metoprolol Succinate (Toprol Xl -) 100 mg PO DAILY [facility] Last Admin: 09/14/16 09:01 Dose: 100 mg Multivitamins/Minerals/Vitamin C (Tab-A-Vit -) 1 tab PO DAILY [facility] Last Admin: 09/14/16 09:01 Dose: 1 tab Pantoprazole Sodium (Protonix -) 40 mg PO DAILY [facility] Last Admin: 09/14/16 09:01 Dose: 40 mg Tamsulosin HCl (Flomax -) 0.4 mg PO DAILY@0830 [facility] Last Admin: 09/14/16 08:56 Dose: 0.4 mg Ursodiol (Actigal -) 300 mg PO TIDCM [facility] Last Admin: 09/14/16 13:09 Dose: 300 mg - Objective Vital Signs: Vital Signs Temperature 98.7 F 09/14/16 10:00 Pulse Rate 118 H 09/14/16 10:00 Respiratory Rate 18 09/14/16 10:00 Blood Pressure 117/71 09/14/16 10:00 O2 Sat by Pulse Oximetry (%) 97 09/14/16 09:00 Constitutional: Yes: No Distress Eyes: Yes: Conjunctiva Clear HENT: Yes: Atraumatic Neck: Yes: Supple Cardiovascular: Yes: Regular Rate and Rhythm Respiratory: Yes: Regular Gastrointestinal: Yes: Normal Bowel Sounds Edema: No Peripheral Pulses WNL: Yes Neurological: Yes: Alert, Oriented Labs: CBC, BMP 09/14/16 05:35 09/14/16 05:35 INR, PTT INR 1.62 (0.82-1.09) H 09/14/16 05:35 Assessment/Plan 6 yo male with HTN, chronic atrial fibrillation (on Xarelto). Admitted with diarrhea, generalized weakness, and right inguinal pain/mass -> right inguinal hernia. Cardiology was consulted for management of atrial fibrillation. Patient is also currently pending inguinal hernia surgical repair. Patient hypotensive with acute renal failure (Cr 4.6) on admission. 09/11/16 CT abd/pelvis: Bibasilar consolidation and small right pleural effusion. Large bilateral renal cysts. Large right inguinal hernia. Currently being treated for acute renal failure with IV fluids with improvement of Cr to 1.3 today. Currently on antibiotics for empiric treatment of pneumonia. 01/11/14 Lexiscan nuclear stress test: Negative for ischemia, LVEF 61% 09/12/16 Echocardiogram: Normal LV size and systolic function. Mild to mod MR. Mild TR. Mild AR. No pulmonary hypertension. INR 1.6 today RECS: Continue metoprolol succinate 100mg po daily for afib rate control. Would continue IV fluid hydration as BP and renal function are improving. Patient may proceed with inguinal hernia repair as planned on Saturday Start lovenox therapeutic dose -. to be held after Saturday evening dose Further recs as per renal/ID/surgery/family medicine.
--- NOTE | 2016-09-14 15:18 | PN ---
Progress Note, Physician History of Present Illness: Apparently refused hernia surgery today He denies abdominal pain, N/V No diarrhea reported by staff Pt denies chest pain/ dyspnea/ cough No c/o fever/ chills Afebrile WBC remains slightly elevated Renal function improved BC no growth Urine c/s LF - Current Medication List Current Medications: Active Medications Acetaminophen (Tylenol -) 650 mg PO Q4H PRN PRN Reason: FEVER OR PAIN Aspirin (Asa -) 81 mg PO DAILY [facility] Last Admin: 09/14/16 09:02 Dose: 81 mg Enoxaparin Sodium (Lovenox -) 80 mg SQ Q12H [facility] Ceftriaxone Sodium (Rocephin 1gm Ivpb (Pre-Docked)) 50 mls @ 200 mls/hr IVPB DAILY [facility] Last Admin: 09/14/16 09:01 Dose: 200 mls/hr Potassium Chloride/Dextrose/Sod Cl (D5-1/2ns+20 Meq Kcl -) 1,000 mls @ 75 mls/ hr IV ASDIR [facility] Last Admin: 09/13/16 20:22 Dose: Not Given Megestrol Acetate (Megace Oral Suspension -) 200 mg PO DAILY [facility] Last Admin: 09/14/16 09:02 Dose: 200 mg Metoprolol Succinate (Toprol Xl -) 100 mg PO DAILY [facility] Last Admin: 09/14/16 09:01 Dose: 100 mg Multivitamins/Minerals/Vitamin C (Tab-A-Vit -) 1 tab PO DAILY [facility] Last Admin: 09/14/16 09:01 Dose: 1 tab Pantoprazole Sodium (Protonix -) 40 mg PO DAILY [facility] Last Admin: 09/14/16 09:01 Dose: 40 mg Tamsulosin HCl (Flomax -) 0.4 mg PO DAILY@0830 [facility] Last Admin: 09/14/16 08:56 Dose: 0.4 mg Ursodiol (Actigal -) 300 mg PO TIDCM [facility] Last Admin: 09/14/16 13:09 Dose: 300 mg - Objective Vital Signs: Vital Signs Temperature 98.7 F 09/14/16 10:00 Pulse Rate 118 H 09/14/16 10:00 Respiratory Rate 18 09/14/16 10:00 Blood Pressure 117/71 09/14/16 10:00 O2 Sat by Pulse Oximetry (%) 97 09/14/16 09:00 Constitutional: Yes: No Distress Eyes: Yes: Conjunctiva Clear Cardiovascular: Yes: Regular Rate and Rhythm, S1, S2 Respiratory: Yes: Rhonchi Gastrointestinal: Yes: Normal Bowel Sounds, Soft, Tenderness, Other (R inguinal tenderness) Genitourinary: Yes: Other (no R scrotal swelling) Labs: CBC, BMP 09/14/16 05:35 09/14/16 05:35 INR, PTT INR 1.62 (0.82-1.09) H 09/14/16 05:35 Assessment/Plan R inguinal hernia Leukocytosis-improved Pneumonia Possible UTI Diarrhea-improved Continue empiric ceftriaxone Await c/s
[2016-09-14] MEDS: ENOXAPARIN NA (PORCINE) 80 MG/0.8 ML DISP.SYRIN SQ SCH (17:46)
[2016-09-15] MEDS: D5-1/2NS+20 MEQ KCL - 1,000 ML IV SCH ×2 (02:25→16:38)
[2016-09-15] MEDS: ENOXAPARIN NA (PORCINE) 80 MG/0.8 ML DISP.SYRIN SQ SCH ×2 (06:09→18:12)
[2016-09-15] MEDS ORDERED: PT OWN MED DRAWER 7, Y5N ONE ×3 (08:46→18:10)
[2016-09-15] MEDS: ASPIRIN 81 MG CHEWABLE TABLETS PO SCH (09:01)
[2016-09-15] MEDS: MULTIVITAMINS (DAILY MVI) TABLET (FP) PO SCH (09:01)
[2016-09-15] MEDS: METOPROLOL SUCCINATE 100 MG TAB.SR.24H (FP) PO SCH (09:01)
[2016-09-15] MEDS: TAMSULOSIN HCL 0.4 MG CAP.ER.24H (FP) PO SCH (09:01)
[2016-09-15] MEDS: URSODIOL 300 MG CAPSULE PO SCH ×3 (09:01→18:12)
[2016-09-15] MEDS: PANTOPRAZOLE 40 MG TABLET (FP) PO SCH (09:01)
[2016-09-15] MEDS: MEGESTROL ACETATE 400 MG/10 ML UNIT DOSE CUP PO SCH (09:04)
[2016-09-15] MEDS: CEFTRIAXONE 50 ML IVPB SCH (09:04)
--- NOTE | 2016-09-15 09:58 | PN ---
Progress Note, Physician Chief Complaint: EATING NO COMPLAINTS INFORMED ME THAT WILL HAVE SURGERY SATURDAY - Current Medication List Current Medications: Active Medications Acetaminophen (Tylenol -) 650 mg PO Q4H PRN PRN Reason: FEVER OR PAIN Aspirin (Asa -) 81 mg PO DAILY [facility] Last Admin: 09/15/16 09:01 Dose: 81 mg Enoxaparin Sodium (Lovenox -) 80 mg SQ BID@0600,1800 [facility] Last Admin: 09/15/16 06:09 Dose: 80 mg Ceftriaxone Sodium (Rocephin 1gm Ivpb (Pre-Docked)) 50 mls @ 200 mls/hr IVPB DAILY [facility] Last Admin: 09/15/16 09:04 Dose: 200 mls/hr Potassium Chloride/Dextrose/Sod Cl (D5-1/2ns+20 Meq Kcl -) 1,000 mls @ 75 mls/ hr IV ASDIR [facility] Last Admin: 09/15/16 02:25 Dose: 75 mls/hr Megestrol Acetate (Megace Oral Suspension -) 200 mg PO DAILY [facility] Last Admin: 09/15/16 09:04 Dose: Not Given Metoprolol Succinate (Toprol Xl -) 100 mg PO DAILY [facility] Last Admin: 09/15/16 09:01 Dose: 100 mg Multivitamins/Minerals/Vitamin C (Tab-A-Vit -) 1 tab PO DAILY [facility] Last Admin: 09/15/16 09:01 Dose: 1 tab Pantoprazole Sodium (Protonix -) 40 mg PO DAILY [facility] Last Admin: 09/15/16 09:01 Dose: 40 mg Tamsulosin HCl (Flomax -) 0.4 mg PO DAILY@0830 [facility] Last Admin: 09/15/16 09:01 Dose: 0.4 mg Ursodiol (Actigal -) 300 mg PO TIDCM [facility] Last Admin: 09/15/16 09:01 Dose: 300 mg - Objective Vital Signs: Vital Signs Temperature 97.6 F 09/15/16 05:00 Pulse Rate 117 H 09/15/16 09:10 Respiratory Rate 20 09/15/16 09:10 Blood Pressure 102/84 09/15/16 09:10 O2 Sat by Pulse Oximetry (%) 97 09/14/16 22:00 Cardiovascular: Yes: WNL Respiratory: Yes: WNL Gastrointestinal: Yes: WNL Labs: CBC, BMP 09/14/16 05:35 09/14/16 05:35 INR, PTT INR 1.62 (0.82-1.09) H 09/14/16 05:35 Problem List - Problems (1) Atrial fibrillation Code(s): I48.91 - UNSPECIFIED ATRIAL FIBRILLATION Qualifiers: Atrial fibrillation type: chronic Qualified Code(s): I48.2 - Chronic atrial fibrillation (2) Inguinal hernia, right Code(s): K40.90 - UNIL INGUINAL HERNIA, W/O OBST OR GANGR, NOT SPCF RECUR Assessment/Plan (1) Acute renal failure Assessment/Plan: IMPROVED -> Cr WNL IVF MONITOR RENAL FUNCTION Code(s): N17.9 - ACUTE KIDNEY FAILURE, UNSPECIFIED Qualifiers: Acute renal failure type: unspecified Qualified Code(s): N17.9 - Acute kidney failure, unspecified (2) Atrial fibrillation Assessment/Plan: HOLD XARELTO--CARDIO--BRIDGE WITH LOVENOX MONITOR RATE LAST STRESS TEST 2013 NEGATIVE Code(s): I48.91 - UNSPECIFIED ATRIAL FIBRILLATION Qualifiers: Atrial fibrillation type: chronic Qualified Code(s): I48.2 - Chronic atrial fibrillation (3) Diarrhea Assessment/Plan: GI CONSULT Code(s): R19.7 - DIARRHEA, UNSPECIFIED Qualifiers: Diarrhea type: unspecified type Qualified Code(s): R19.7 - Diarrhea, unspecified (4) Inguinal hernia, right Assessment/Plan: SURGICAL CONSULT NOTED POSSIBLE OR IN AM -> PATIENT REFUSED PATIENT WILL AGREE TO SURGERY SUNDAY 09/17 Code(s): K40.90 - UNIL INGUINAL HERNIA, W/O OBST OR GANGR, NOT SPCF RECUR (5) Pneumonia Assessment/Plan: IV ABX ID CONSULT NOTED Microbiology 09/12/16 13:20 Blood Culture - Preliminary Blood - Peripheral Venous NO GROWTH OBTAINED AFTER 24 HOURS, INCUBATION TO CONTINUE FOR 4 DAYS. 09/12/16 13:25 Blood Culture - Preliminary Blood - Peripheral Venous NO GROWTH OBTAINED AFTER 24 HOURS, INCUBATION TO CONTINUE FOR 4 DAYS. 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
--- NOTE | 2016-09-15 14:11 | PN ---
Progress Note, Physician History of Present Illness: No chest pain or dyspnea. - Current Medication List Current Medications: Active Medications Acetaminophen (Tylenol -) 650 mg PO Q4H PRN PRN Reason: FEVER OR PAIN Aspirin (Asa -) 81 mg PO DAILY [facility] Last Admin: 09/15/16 09:01 Dose: 81 mg Enoxaparin Sodium (Lovenox -) 80 mg SQ BID@0600,1800 [facility] Stop: 09/16/16 23:59 Last Admin: 09/15/16 06:09 Dose: 80 mg Ceftriaxone Sodium (Rocephin 1gm Ivpb (Pre-Docked)) 50 mls @ 200 mls/hr IVPB DAILY [facility] Last Admin: 09/15/16 09:04 Dose: 200 mls/hr Potassium Chloride/Dextrose/Sod Cl (D5-1/2ns+20 Meq Kcl -) 1,000 mls @ 75 mls/ hr IV ASDIR [facility] Last Admin: 09/15/16 02:25 Dose: 75 mls/hr Megestrol Acetate (Megace Oral Suspension -) 200 mg PO DAILY [facility] Last Admin: 09/15/16 09:04 Dose: Not Given Metoprolol Succinate (Toprol Xl -) 100 mg PO DAILY [facility] Last Admin: 09/15/16 09:01 Dose: 100 mg Multivitamins/Minerals/Vitamin C (Tab-A-Vit -) 1 tab PO DAILY [facility] Last Admin: 09/15/16 09:01 Dose: 1 tab Pantoprazole Sodium (Protonix -) 40 mg PO DAILY [facility] Last Admin: 09/15/16 09:01 Dose: 40 mg Tamsulosin HCl (Flomax -) 0.4 mg PO DAILY@0830 [facility] Last Admin: 09/15/16 09:01 Dose: 0.4 mg Ursodiol (Actigal -) 300 mg PO TIDCM [facility] Last Admin: 09/15/16 13:16 Dose: 300 mg - Objective Vital Signs: Vital Signs Temperature 97.6 F 09/15/16 05:00 Pulse Rate 117 H 09/15/16 09:10 Respiratory Rate 20 09/15/16 09:10 Blood Pressure 102/84 09/15/16 09:10 O2 Sat by Pulse Oximetry (%) 97 09/15/16 09:00 Constitutional: Yes: No Distress Eyes: Yes: Conjunctiva Clear, EOM Intact HENT: Yes: Atraumatic, Normocephalic Cardiovascular: Yes: Pulse Irregular. No: JVD, Murmur Respiratory: Yes: CTA Bilaterally Gastrointestinal: Yes: Normal Bowel Sounds, Soft Edema: No Neurological: Yes: Alert, Oriented Psychiatric: Yes: WNL Labs: CBC, BMP 09/14/16 05:35 09/14/16 05:35 INR, PTT INR 1.62 (0.82-1.09) H 09/14/16 05:35 Assessment/Plan 86 yo male with HTN, chronic atrial fibrillation (on Xarelto). Admitted with diarrhea, generalized weakness, and right inguinal pain/mass -> right inguinal hernia. Cardiology was consulted for management of atrial fibrillation. Patient is also currently pending inguinal hernia surgical repair. Patient hypotensive with acute renal failure (Cr 4.6) on admission. 09/11/16 CT abd/pelvis: Bibasilar consolidation and small right pleural effusion. Large bilateral renal cysts. Large right inguinal hernia. Currently being treated for acute renal failure with IV fluids with improvement of Cr to 1.9 today. Currently on antibiotics for empiric treatment of pneumonia. 01/11/14 Lexiscan nuclear stress test: Negative for ischemia, LVEF 61% 09/12/16 Echocardiogram: Normal LV size and systolic function. Mild to mod MR. Mild TR. Mild AR. No pulmonary hypertension. RECS: Will increase metoprolol succinate to 150 mg po daily for afib rate control. Patient may proceed with inguinal hernia repair on Saturday. Currently on lovenox while his Xarelto is on hold in preparation for surgery. Last dose of lovenox to be given Saturday evening since patient's surgery is on Saturday. Will continue to follow. Please call with questions. Further recs as per renal/ID/surgery/family medicine.
[2016-09-16] MEDS: D5-1/2NS+20 MEQ KCL - 1,000 ML IV SCH (06:13)
[2016-09-16] MEDS: ENOXAPARIN NA (PORCINE) 80 MG/0.8 ML DISP.SYRIN SQ SCH ×2 (06:14→18:30)
[2016-09-16 07:08] LABS: MCH 30.2 pg (25.7-33.7); MEAN CELL VOLUME 88.6 fl (80-96); MEAN PLT VOLUME 9.5 fl (7.5-11.1); PLATELET COUNT 384 K/MM3 (134-434); RDW 15.4 % (11.9-15.9); WHITE BLOOD COUNT 9.7 K/mm3 (4.0-10.0)
--- NOTE | 2016-09-16 08:13 | PN ---
Progress Note, Physician Chief Complaint: NO COMPLAINTS INFORMED ME THAT WILL HAVE SURGERY SATURDAY - Current Medication List Current Medications: Active Medications Acetaminophen (Tylenol -) 650 mg PO Q4H PRN PRN Reason: FEVER OR PAIN Last Admin: 09/15/16 22:01 Dose: 650 mg Aspirin (Asa -) 81 mg PO DAILY [facility] Last Admin: 09/15/16 09:01 Dose: 81 mg Enoxaparin Sodium (Lovenox -) 80 mg SQ BID@0600,1800 [facility] Stop: 09/16/16 23:59 Last Admin: 09/16/16 06:14 Dose: 80 mg Ceftriaxone Sodium (Rocephin 1gm Ivpb (Pre-Docked)) 50 mls @ 200 mls/hr IVPB DAILY [facility] Last Admin: 09/15/16 09:04 Dose: 200 mls/hr Potassium Chloride/Dextrose/Sod Cl (D5-1/2ns+20 Meq Kcl -) 1,000 mls @ 75 mls/ hr IV ASDIR [facility] Last Admin: 09/16/16 06:13 Dose: 75 mls/hr Megestrol Acetate (Megace Oral Suspension -) 200 mg PO DAILY [facility] Last Admin: 09/15/16 09:04 Dose: Not Given Metoprolol Succinate (Toprol Xl -) 150 mg PO DAILY [facility] Multivitamins/Minerals/Vitamin C (Tab-A-Vit -) 1 tab PO DAILY [facility] Last Admin: 09/15/16 09:01 Dose: 1 tab Pantoprazole Sodium (Protonix -) 40 mg PO DAILY [facility] Last Admin: 09/15/16 09:01 Dose: 40 mg Tamsulosin HCl (Flomax -) 0.4 mg PO DAILY@0830 [facility] Last Admin: 09/15/16 09:01 Dose: 0.4 mg Ursodiol (Actigal -) 300 mg PO TIDCM [facility] Last Admin: 09/15/16 18:12 Dose: 300 mg - Objective Vital Signs: Vital Signs Temperature 98.2 F 09/16/16 06:00 Pulse Rate 114 H 09/16/16 06:00 Respiratory Rate 18 09/16/16 06:00 Blood Pressure 132/98 09/16/16 06:00 O2 Sat by Pulse Oximetry (%) 97 09/15/16 22:00 Cardiovascular: Yes: WNL Respiratory: Yes: WNL Gastrointestinal: Yes: Normal Bowel Sounds, Soft, Hernia Edema: No Labs: CBC, BMP 09/16/16 06:15 INR, PTT INR 1.62 (0.82-1.09) H 09/14/16 05:35 Problem List - Problems (1) UTI (urinary tract infection) Code(s): N39.0 - URINARY TRACT INFECTION, SITE NOT SPECIFIED Assessment/Plan (1) Acute renal failure Assessment/Plan: IMPROVED -> Cr WNL IVF MONITOR RENAL FUNCTION Code(s): N17.9 - ACUTE KIDNEY FAILURE, UNSPECIFIED Qualifiers: Acute renal failure type: unspecified Qualified Code(s): N17.9 - Acute kidney failure, unspecified (2) Atrial fibrillation Assessment/Plan: HOLD XARELTO--CARDIO--BRIDGE WITH LOVENOX -> NO AC 09/17 MONITOR RATE LAST STRESS TEST 2013 NEGATIVE Code(s): I48.91 - UNSPECIFIED ATRIAL FIBRILLATION Qualifiers: Atrial fibrillation type: chronic Qualified Code(s): I48.2 - Chronic atrial fibrillation (3) Diarrhea Assessment/Plan: GI CONSULT Code(s): R19.7 - DIARRHEA, UNSPECIFIED Qualifiers: Diarrhea type: unspecified type Qualified Code(s): R19.7 - Diarrhea, unspecified (4) Inguinal hernia, right Assessment/Plan: PATIENT WILL AGREE TO SURGERY SUNDAY 09/17 Code(s): K40.90 - UNIL INGUINAL HERNIA, W/O OBST OR GANGR, NOT SPCF RECUR (5) Pneumonia Assessment/Plan: IV ABX ID CONSULT NOTED CXR--ATELETASIS Code(s): J18.9 - PNEUMONIA, UNSPECIFIED ORGANISM (6) UTI (urinary tract infection) Code(s): N39.0 - URINARY TRACT INFECTION, SITE NOT SPECIFIED ON CEFTRIAXONE -> CHANGED TO ZOSYN UCx 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
--- NOTE | 2016-09-16 08:24 | SPA.PREOP ---
- PRE-OP NOTE Dx: Right inguinal hernia Planned Procedure: repair of right inguinal hernia Surgeon: Dr. Srivastava Consent: To be obtained by surgeon Last Vital Signs Temp Pulse Resp BP Pulse Ox 98.2 F 114 H 18 132/98 97 09/16/16 06:00 09/16/16 06:00 09/16/16 06:00 09/16/16 06:00 09/15/16 22:00 Lab Results WBC 9.7 K/mm3 (4.0-10.0) 09/16/16 06:15 RBC 3.81 M/mm3 (4.00-5.60) L 09/16/16 06:15 Hgb 11.5 GM/dL (11.7-16.9) L 09/16/16 06:15 Hct 33.8 % (35.4-49) L 09/16/16 06:15 MCV 88.6 fl (80-96) 09/16/16 06:15 MCHC 34.0 g/dl (32.0-35.9) 09/16/16 06:15 RDW 15.4 % (11.9-15.9) 09/16/16 06:15 Plt Count 384 K/MM3 (134-434) 09/16/16 06:15 Sodium 140 mmol/L (136-145) 09/14/16 05:35 Potassium 4.4 mmol/L (3.5-5.1) 09/14/16 05:35 Chloride 106 mmol/L (98-107) 09/14/16 05:35 Carbon Dioxide 23 mmol/L (21-32) 09/14/16 05:35 Anion Gap 11 (8-16) 09/14/16 05:35 BUN 34 mg/dL (7-18) H D 09/14/16 05:35 Creatinine 1.3 mg/dL (0.7-1.3) D 09/14/16 05:35 Random Glucose 123 mg/dL (74-106) H 09/14/16 05:35 Calcium 8.2 mg/dL (8.5-10.1) L 09/14/16 05:35 Blood Type O POSITIVE 09/12/16 09:20 Antibody Screen Negative 09/11/16 15:05 INR 1.62 (0.82-1.09) H 09/14/16 05:35 Laboratory Tests 09/14/16 05:35 INR 1.62 H - ASSESSMENT/PLAN 1. Make NPO after midnight except po meds 2. GI/DVT PPX, hold ovenox in the am 3. Medical optimization / clearance in chart, seen by cardiology 09/15, h/o of a fib, betablock dose increased and getting lovenox with last dose tonight Problem List - Problems (1) Inguinal hernia, right Code(s): K40.90 - UNIL INGUINAL HERNIA, W/O OBST OR GANGR, NOT SPCF RECUR Visit type - Case Type Case Type: ED Admission - Emergency Emergency Visit: Yes ED Registration Date: 09/11/16 Care time: The patient presented to the Emergency Department on the above date and was hospitalized for further evaluation of their emergent condition. - New patient This patient is new to me today: No - Critical Care Critical Care patient: No
[2016-09-16] MEDS ORDERED: PT OWN MED DRAWER 7, Y5N ONE ×2 (08:26→17:51)
[2016-09-16 08:38] LABS: ALBUMIN 2.2 g/dl (3.4-5.0); ALK PHOS 100 U/L (45-117); ANION GAP 10 (8-16); BILIRUBIN,TOTAL 0.6 mg/dL (0.2-1.0); CO2 22 mmol/L (21-32); CREATININE 0.9 mg/dL (0.7-1.3); GLUCOSE,RANDOM 95 mg/dL (74-106); SGOT/AST 10 U/L (15-37); SGPT/ALT 30 U/L (12-78); TOT PROT 5.7 g/dl (6.4-8.2)
[2016-09-16] MEDS: TAMSULOSIN HCL 0.4 MG CAP.ER.24H (FP) PO SCH (08:40)
[2016-09-16] MEDS: URSODIOL 300 MG CAPSULE PO SCH ×3 (08:41→17:54)
[2016-09-16] MEDS ORDERED: PIPERACILLIN/TAZOB 3.375 GM 3.375 GM in DEXTROSE 5%-WATER - 50 ML IVPB SCH (09:00)
--- NOTE | 2016-09-16 09:18 | PN ---
Progress Note, Physician History of Present Illness: No chest pain or dyspnea. - Current Medication List Current Medications: Active Medications Acetaminophen (Tylenol -) 650 mg PO Q4H PRN PRN Reason: FEVER OR PAIN Last Admin: 09/15/16 22:01 Dose: 650 mg Aspirin (Asa -) 81 mg PO DAILY [facility] Last Admin: 09/15/16 09:01 Dose: 81 mg Enoxaparin Sodium (Lovenox -) 80 mg SQ BID@0600,1800 [facility] Stop: 09/16/16 23:59 Last Admin: 09/16/16 06:14 Dose: 80 mg Potassium Chloride/Dextrose/Sod Cl (D5-1/2ns+20 Meq Kcl -) 1,000 mls @ 75 mls/ hr IV ASDIR [facility] Last Admin: 09/16/16 06:13 Dose: 75 mls/hr Piperacillin Sod/Tazobactam (Sod 3.375 gm/ Dextrose) 50 mls @ 100 mls/hr IVPB Q6H-IV [facility] PRN Reason: Protocol Megestrol Acetate (Megace Oral Suspension -) 200 mg PO DAILY [facility] Last Admin: 09/15/16 09:04 Dose: Not Given Metoprolol Succinate (Toprol Xl -) 150 mg PO DAILY [facility] Multivitamins/Minerals/Vitamin C (Tab-A-Vit -) 1 tab PO DAILY [facility] Last Admin: 09/15/16 09:01 Dose: 1 tab Pantoprazole Sodium (Protonix -) 40 mg PO DAILY [facility] Last Admin: 09/15/16 09:01 Dose: 40 mg Tamsulosin HCl (Flomax -) 0.4 mg PO DAILY@0830 [facility] Last Admin: 09/16/16 08:40 Dose: 0.4 mg Ursodiol (Actigal -) 300 mg PO TIDCM [facility] Last Admin: 09/16/16 08:41 Dose: 300 mg - Objective Vital Signs: Vital Signs Temperature 98.2 F 09/16/16 06:00 Pulse Rate 114 H 09/16/16 06:00 Respiratory Rate 18 09/16/16 06:00 Blood Pressure 132/98 09/16/16 06:00 O2 Sat by Pulse Oximetry (%) 97 09/15/16 22:00 Constitutional: Yes: Well Nourished, No Distress Eyes: Yes: Conjunctiva Clear, EOM Intact HENT: Yes: Atraumatic, Normocephalic Cardiovascular: Yes: Pulse Irregular. No: JVD Respiratory: Yes: CTA Bilaterally Gastrointestinal: Yes: Normal Bowel Sounds, Soft Edema: No Labs: CBC, BMP 09/16/16 06:15 INR, PTT INR 1.62 (0.82-1.09) H 09/14/16 05:35 Assessment/Plan 86 yo male with HTN, chronic atrial fibrillation (on Xarelto). Admitted with diarrhea, generalized weakness, and right inguinal pain/mass -> right inguinal hernia. Cardiology was consulted for management of atrial fibrillation. Patient is also currently pending inguinal hernia surgical repair. Patient hypotensive with acute renal failure (Cr 4.6) on admission. 09/11/16 CT abd/pelvis: Bibasilar consolidation and small right pleural effusion. Large bilateral renal cysts. Large right inguinal hernia. Currently being treated for acute renal failure with IV fluids with improvement of Cr to 1.9 today. Currently on antibiotics for empiric treatment of pneumonia. 01/11/14 Lexiscan nuclear stress test: Negative for ischemia, LVEF 61% 09/12/16 Echocardiogram: Normal LV size and systolic function. Mild to mod MR. Mild TR. Mild AR. No pulmonary hypertension. RECS: Metoprolol succinate increased today to 150 mg po daily for afib rate control. Patient may proceed with inguinal hernia repair on Saturday. Currently on lovenox while his Xarelto is on hold in preparation for surgery. Last dose of lovenox to be given Saturday evening. Will continue to follow. Please call with questions. Further recs as per renal/ID/surgery/family medicine.
[2016-09-16] MEDS ORDERED: PIPERACILLIN/TAZOB 3.375 GM/50 ML PRE-DOCKED IVPB ONE (09:30)
[2016-09-16] MEDS ORDERED: METOPROLOL SUCCINATE 50 MG TAB.SR.24H (FP) PO SCH (10:00)
[2016-09-16] MEDS: MULTIVITAMINS (DAILY MVI) TABLET (FP) PO SCH (10:21)
[2016-09-16] MEDS: ASPIRIN 81 MG CHEWABLE TABLETS PO SCH (10:21)
[2016-09-16] MEDS: PANTOPRAZOLE 40 MG TABLET (FP) PO SCH (10:21)
[2016-09-16] MEDS: MEGESTROL ACETATE 400 MG/10 ML UNIT DOSE CUP PO SCH (10:23)
[2016-09-16] MEDS ORDERED: METOPROLOL SUCCINATE 50 MG TAB.SR.24H (FP) PO ONE ×2 (11:35→12:00)
[2016-09-16] MEDS: METOPROLOL TARTRATE 5 MG/5 ML VIAL IVPUSH PRN ×3 (12:21→21:15)
[2016-09-16] MEDS ORDERED: dilTIAZem HCL 50 MG/10 ML - 10 ML VIAL IVPUSH ONE ×2 (22:15)
[2016-09-17] MEDS: DILTIAZEM INJECTION 125 MG in DEXTROSE 5%-WATER - 100 ML IVPB SCH ×2 (00:05→07:47)
[2016-09-17] MEDS: D5-1/2NS+20 MEQ KCL - 1,000 ML IV SCH ×2 (00:10→20:30)
[2016-09-17 07:15] LABS: MCH 30.4 pg (25.7-33.7); MCHC 34.3 g/dl (32.0-35.9); MEAN CELL VOLUME 88.5 fl (80-96); MEAN PLT VOLUME 9.7 fl (7.5-11.1); PLATELET COUNT 426 K/MM3 (134-434); RDW 15.4 % (11.9-15.9); WHITE BLOOD COUNT 10.5 K/mm3 (4.0-10.0)
[2016-09-17] MEDS ORDERED: PROPOFOL 20 ML ONE ×2 (07:31)
[2016-09-17] MEDS ORDERED: LIDOCAINE HCL/PF 2% SDV 5ML VIAL ONE (07:33)
[2016-09-17 07:39] LABS: ALBUMIN 2.5 g/dl (3.4-5.0); ALK PHOS 127 U/L (45-117); ANION GAP 10 (8-16); BILIRUBIN,TOTAL 0.6 mg/dL (0.2-1.0); CALCIUM 8.3 mg/dL (8.5-10.1); CO2 23 mmol/L (21-32); CREATININE 0.9 mg/dL (0.7-1.3); GLUCOSE,RANDOM 100 mg/dL (74-106); SGOT/AST 13 U/L (15-37); SGPT/ALT 34 U/L (12-78); TOT PROT 6.4 g/dl (6.4-8.2)
[2016-09-17] MEDS ORDERED: DESFLURANE GAS 240 ML BOTTLE IH ONE (07:42)
[2016-09-17] MEDS: METOPROLOL TARTRATE 5 MG/5 ML VIAL IVPUSH PRN (08:04)
--- NOTE | 2016-09-17 08:07 | PN ---
Progress Note, Physician History of Present Illness: PT NOTED TO BE IN RAPID AFIB ON CARDIZEM DRIP--AT 15 STILL RATE OF 130 - Current Medication List Current Medications: Active Medications Acetaminophen (Tylenol -) 650 mg PO Q4H PRN PRN Reason: FEVER OR PAIN Last Admin: 09/15/16 22:01 Dose: 650 mg Aspirin (Asa -) 81 mg PO DAILY [facility] Last Admin: 09/16/16 10:21 Dose: 81 mg Diltiazem HCl (Cardizem Cd -) 120 mg PO DAILY [facility] Last Admin: 09/16/16 22:17 Dose: 120 mg Potassium Chloride/Dextrose/Sod Cl (D5-1/2ns+20 Meq Kcl -) 1,000 mls @ 75 mls/ hr IV ASDIR [facility] Last Admin: 09/17/16 00:10 Dose: Not Given Piperacillin Sod/Tazobactam (Sod 3.375 gm/ Dextrose) 50 mls @ 100 mls/hr IVPB Q6H-IV [facility] PRN Reason: Protocol Diltiazem HCl 125 mg/ Dextrose 125 mls @ 5 mls/hr IVPB TITR [facility]; 5 MG/HR PRN Reason: Protocol Last Admin: 09/17/16 07:47 Dose: 15 mls/hr Megestrol Acetate (Megace Oral Suspension -) 200 mg PO DAILY [facility] Last Admin: 09/16/16 10:23 Dose: Not Given Metoprolol Succinate (Toprol Xl -) 200 mg PO DAILY [facility] Metoprolol Tartrate (Lopressor Injection -) 5 mg IVPUSH Q4H PRN PRN Reason: TACHYCARDIA Last Admin: 09/16/16 21:15 Dose: 5 mg Multivitamins/Minerals/Vitamin C (Tab-A-Vit -) 1 tab PO DAILY [facility] Last Admin: 09/16/16 10:21 Dose: 1 tab Pantoprazole Sodium (Protonix -) 40 mg PO DAILY [facility] Last Admin: 09/16/16 10:21 Dose: 40 mg Tamsulosin HCl (Flomax -) 0.4 mg PO DAILY@0830 [facility] Last Admin: 09/16/16 08:40 Dose: 0.4 mg Ursodiol (Actigal -) 300 mg PO TIDCM [facility] Last Admin: 09/16/16 17:54 Dose: 300 mg - Objective Vital Signs: Vital Signs Temperature 97.3 F L 09/17/16 05:50 Pulse Rate 145 H 09/17/16 07:47 Respiratory Rate 20 09/17/16 05:50 Blood Pressure 141/92 09/17/16 07:47 O2 Sat by Pulse Oximetry (%) 94 L 09/17/16 00:00 Cardiovascular: Yes: Tachycardia, Pulse Irregular, S1, S2 Respiratory: Yes: Regular, CTA Bilaterally Gastrointestinal: Yes: Normal Bowel Sounds, Soft Labs: CBC, BMP 09/17/16 05:35 09/17/16 05:35 INR, PTT INR 1.62 (0.82-1.09) H 09/14/16 05:35 Problem List - Problems (1) Acute renal failure Assessment/Plan: IMPROVED IVF MONITOR RENAL FUNCTION Code(s): N17.9 - ACUTE KIDNEY FAILURE, UNSPECIFIED Qualifiers: Acute renal failure type: unspecified Qualified Code(s): N17.9 - Acute kidney failure, unspecified (2) Atrial fibrillation Assessment/Plan: HOLD XARELTO--CARDIO--AWAIT SURGERY RATE CONTROL--CARDIZEM AND METOPROLOL LAST STRESS TEST 2014 NEGATIVE Code(s): I48.91 - UNSPECIFIED ATRIAL FIBRILLATION Qualifiers: Atrial fibrillation type: chronic Qualified Code(s): I48.2 - Chronic atrial fibrillation (3) Diarrhea Code(s): R19.7 - DIARRHEA, UNSPECIFIED Qualifiers: Diarrhea type: unspecified type Qualified Code(s): R19.7 - Diarrhea, unspecified (4) Inguinal hernia, right Assessment/Plan: SURGERY ONCE BETTER RATE CONTROLL Code(s): K40.90 - UNIL INGUINAL HERNIA, W/O OBST OR GANGR, NOT SPCF RECUR (5) Pneumonia Assessment/Plan: IV ABX ID CONSULT NOTED Microbiology 09/12/16 13:20 Blood Culture - Preliminary Blood - Peripheral Venous NO GROWTH OBTAINED AFTER 24 HOURS, INCUBATION TO CONTINUE FOR 4 DAYS. 09/12/16 13:25 Blood Culture - Preliminary Blood - Peripheral Venous NO GROWTH OBTAINED AFTER 24 HOURS, INCUBATION TO CONTINUE FOR 4 DAYS. 09/13/16 01:20 Norovirus GI - Preliminary Stool Norovirus GII - Preliminary 09/13/16 01:20 Clostridium difficile Antigen (BREANA) - Final Stool Clostridium difficile Toxin Assay - Final CXR--ATELETASIS Code(s): J18.9 - PNEUMONIA, UNSPECIFIED ORGANISM
[2016-09-17] MEDS: TAMSULOSIN HCL 0.4 MG CAP.ER.24H (FP) PO SCH (08:08)
[2016-09-17] MEDS: METOPROLOL SUCCINATE 100 MG TAB.SR.24H (FP) PO SCH ×2 (08:17→09:59)
--- NOTE | 2016-09-17 09:52 | PN ---
Progress Note, Physician History of Present Illness: No chest pain or dyspnea. Afib rate controlled improved. - Current Medication List Current Medications: Active Medications Acetaminophen (Tylenol -) 650 mg PO Q4H PRN PRN Reason: FEVER OR PAIN Last Admin: 09/15/16 22:01 Dose: 650 mg Aspirin (Asa -) 81 mg PO DAILY [facility] Last Admin: 09/16/16 10:21 Dose: 81 mg Diltiazem HCl (Cardizem Cd -) 120 mg PO DAILY [facility] Last Admin: 09/16/16 22:17 Dose: 120 mg Potassium Chloride/Dextrose/Sod Cl (D5-1/2ns+20 Meq Kcl -) 1,000 mls @ 75 mls/ hr IV ASDIR [facility] Last Admin: 09/17/16 00:10 Dose: Not Given Piperacillin Sod/Tazobactam (Sod 3.375 gm/ Dextrose) 50 mls @ 100 mls/hr IVPB Q6H-IV [facility] PRN Reason: Protocol Diltiazem HCl 125 mg/ Dextrose 125 mls @ 5 mls/hr IVPB TITR [facility]; 5 MG/HR PRN Reason: Protocol Last Admin: 09/17/16 07:47 Dose: 15 mls/hr Megestrol Acetate (Megace Oral Suspension -) 200 mg PO DAILY [facility] Last Admin: 09/16/16 10:23 Dose: Not Given Metoprolol Succinate (Toprol Xl -) 200 mg PO DAILY [facility] Last Admin: 09/17/16 08:17 Dose: 200 mg Metoprolol Tartrate (Lopressor Injection -) 5 mg IVPUSH Q4H PRN PRN Reason: TACHYCARDIA Last Admin: 09/17/16 08:04 Dose: 5 mg Multivitamins/Minerals/Vitamin C (Tab-A-Vit -) 1 tab PO DAILY [facility] Last Admin: 09/16/16 10:21 Dose: 1 tab Pantoprazole Sodium (Protonix -) 40 mg PO DAILY [facility] Last Admin: 09/16/16 10:21 Dose: 40 mg Tamsulosin HCl (Flomax -) 0.4 mg PO DAILY@0830 [facility] Last Admin: 09/17/16 08:08 Dose: 0.4 mg Ursodiol (Actigal -) 300 mg PO TIDCM [facility] Last Admin: 09/16/16 17:54 Dose: 300 mg - Objective Vital Signs: Vital Signs Temperature 97.3 F L 02/20/17 05:50 Pulse Rate 155 H 09/17/16 08:04 Respiratory Rate 20 09/17/16 05:50 Blood Pressure 135/83 09/17/16 08:04 O2 Sat by Pulse Oximetry (%) 94 L 09/17/16 00:00 Constitutional: Yes: Well Nourished, No Distress Eyes: Yes: Conjunctiva Clear, EOM Intact HENT: Yes: Atraumatic, Normocephalic Cardiovascular: Yes: Regular Rate and Rhythm, Pulse Irregular. No: JVD, Murmur Respiratory: Yes: CTA Bilaterally Gastrointestinal: Yes: Normal Bowel Sounds Edema: No Neurological: Yes: Alert, Oriented Labs: CBC, BMP 09/17/16 05:35 09/17/16 05:35 INR, PTT INR 1.62 (0.82-1.09) H 09/14/16 05:35 Assessment/Plan 86 yo male with HTN, chronic atrial fibrillation (on Xarelto). Admitted with diarrhea, generalized weakness, and right inguinal pain/mass -> right inguinal hernia. Cardiology was consulted for management of atrial fibrillation. Patient is also currently pending inguinal hernia surgical repair. Patient hypotensive with acute renal failure (Cr 4.6) on admission. 09/11/16 CT abd/pelvis: Bibasilar consolidation and small right pleural effusion. Large bilateral renal cysts. Large right inguinal hernia. Currently being treated for acute renal failure with IV fluids with improvement of Cr to 1.9 today. Currently on antibiotics for empiric treatment of pneumonia. 01/11/14 Lexiscan nuclear stress test: Negative for ischemia, LVEF 61% 09/12/16 Echocardiogram: Normal LV size and systolic function. Mild to mod MR. Mild TR. Mild AR. No pulmonary hypertension. Patient developed rapid afib yesterday evening. Started on cardizem gtt. RECS: Continue metoprolol succinate 200 mg po daily and cardizem CD 120 mg po daily for afib rate control. Currently rate controlled on cardizem gtt 15 mg/hr. Will wean as tolerated and increase oral cardizem as needed. Patient may proceed with inguinal hernia repair today as patient is rate controlled. Last dose of lovenox was given on Saturday evening in preparation for surgery today. Will continue to follow. Please call with questions. Further recs as per renal/ID/surgery/family medicine.
[2016-09-17] MEDS: MULTIVITAMINS (DAILY MVI) TABLET (FP) PO SCH (09:59)
[2016-09-17] MEDS: ASPIRIN 81 MG CHEWABLE TABLETS PO SCH (09:59)
[2016-09-17] MEDS: PANTOPRAZOLE 40 MG TABLET (FP) PO SCH (09:59)
[2016-09-17] MEDS: URSODIOL 300 MG CAPSULE PO SCH ×3 (09:59→17:09)
[2016-09-17] MEDS ORDERED: PT OWN MED DRAWER 7, Y5N ONE ×2 (10:00→12:10)
[2016-09-17] MEDS: MEGESTROL ACETATE 400 MG/10 ML UNIT DOSE CUP PO SCH (10:01)
[2016-09-17 10:15] LABS: METAMYELOCYTE 2 % (0-2)
--- NOTE | 2016-09-17 10:50 | PN ---
Progress Note, Physician Chief Complaint: Denies SOB chest pain couphing Antibiotics day 5 first Ceftriaxone then day 2 Zosyn based on urine c/s - Current Medication List Current Medications: Active Medications Acetaminophen (Tylenol -) 650 mg PO Q4H PRN PRN Reason: FEVER OR PAIN Last Admin: 09/15/16 22:01 Dose: 650 mg Aspirin (Asa -) 81 mg PO DAILY [facility] Last Admin: 09/17/16 09:59 Dose: 81 mg Diltiazem HCl (Cardizem Cd -) 120 mg PO DAILY [facility] Last Admin: 09/17/16 09:59 Dose: 120 mg Potassium Chloride/Dextrose/Sod Cl (D5-1/2ns+20 Meq Kcl -) 1,000 mls @ 75 mls/ hr IV ASDIR [facility] Last Admin: 09/17/16 00:10 Dose: Not Given Piperacillin Sod/Tazobactam (Sod 3.375 gm/ Dextrose) 50 mls @ 100 mls/hr IVPB Q6H-IV [facility] PRN Reason: Protocol Diltiazem HCl 125 mg/ Dextrose 125 mls @ 5 mls/hr IVPB TITR [facility]; 5 MG/HR PRN Reason: Protocol Last Admin: 09/17/16 07:47 Dose: 15 mls/hr Megestrol Acetate (Megace Oral Suspension -) 200 mg PO DAILY [facility] Last Admin: 09/17/16 10:01 Dose: 200 mg Metoprolol Succinate (Toprol Xl -) 200 mg PO DAILY [facility] Last Admin: 09/17/16 09:59 Dose: Not Given Metoprolol Tartrate (Lopressor Injection -) 5 mg IVPUSH Q4H PRN PRN Reason: TACHYCARDIA Last Admin: 09/17/16 08:04 Dose: 5 mg Multivitamins/Minerals/Vitamin C (Tab-A-Vit -) 1 tab PO DAILY [facility] Last Admin: 09/17/16 09:59 Dose: 1 tab Pantoprazole Sodium (Protonix -) 40 mg PO DAILY [facility] Last Admin: 09/17/16 09:59 Dose: 40 mg Tamsulosin HCl (Flomax -) 0.4 mg PO DAILY@0830 [facility] Last Admin: 09/17/16 08:08 Dose: 0.4 mg Ursodiol (Actigal -) 300 mg PO TIDCM [facility] Last Admin: 09/17/16 09:59 Dose: 300 mg - Objective Vital Signs: Vital Signs Temperature 97.3 F L 09/17/16 05:50 Pulse Rate 155 H 09/17/16 08:04 Respiratory Rate 20 09/17/16 05:50 Blood Pressure 135/83 09/17/16 08:04 O2 Sat by Pulse Oximetry (%) 94 L 09/17/16 00:00 Constitutional: Yes: No Distress HENT: Yes: WNL, Atraumatic Neck: Yes: WNL, Supple Cardiovascular: Yes: Regular Rate and Rhythm, S1, S2 Respiratory: Yes: WNL, Regular, CTA Bilaterally Gastrointestinal: Yes: WNL, Normal Bowel Sounds, Soft. No: Tenderness Edema: No Labs: CBC, BMP 09/17/16 05:35 09/17/16 05:35 INR, PTT INR 1.62 (0.82-1.09) H 09/14/16 05:35 Assessment/Plan Microbiology 09/13/16 01:20 Stool Salmonella/Shigella Culture - Final 09/13/16 01:20 Stool Escherichia coli 0157 Culture - Final NO GROWTH OF SALMONELLA OR SHIGELLA SPECIES OBTAINED NO GROWTH OF CAMPYLOBACTER SPECIES OBTAINED NO GROWTH OF E COLI 0157 OBTAINED 09/13/16 01:20 Stool Clostridium difficile Antigen (BREANA) - Final 09/13/16 01:20 Stool Clostridium difficile Toxin Assay - Final 09/12/16 18:45 Urine - Urine Clean Catch Urine Culture - Final Klebsiella Pneumoniae - Esbl 09/12/16 13:25 Blood - Peripheral Venous Blood Culture - Preliminary NO GROWTH OBTAINED AFTER 96 HOURS, INCUBATION TO CONTINUE FOR 1 DAYS. 09/12/16 13:20 Blood - Peripheral Venous Blood Culture - Preliminary NO GROWTH OBTAINED AFTER 96 HOURS, INCUBATION TO CONTINUE FOR 1 DAYS. Laboratory Tests 09/12/16 09/14/16 09/17/16 18:45 05:35 05:35 WBC 10.5 H Hgb 11.8 Hct 34.5 L Plt Count 426 Band Neutrophils 13.0 H D INR 1.62 H AST ALT Ur Leukocyte Esterase 3+ H Urine RBC 1 Urine WBC 118 Urine Bacteria Many 09/17/16 05:35 WBC Hgb Hct Plt Count Band Neutrophils INR AST 13 L D ALT 34 Ur Leukocyte Esterase Urine RBC Urine WBC Urine Bacteria Assessment Urinary infection ESBL Klebsiella Plan Substituted Ertepsantosh Desouza MD
[2016-09-17] MEDS: ERTAPENEM SODIUM 1 GM/50 ML PRE-DOCKED IVPB SCH (13:09)
--- NOTE | 2016-09-18 08:17 | PN ---
Progress Note, Physician History of Present Illness: PT NOTED TO BE IN RAPID AFIB ON CARDIZEM DRIP--AT 15 STILL RATE OF 120 no cp or sob - Current Medication List Current Medications: Active Medications Acetaminophen (Tylenol -) 650 mg PO Q4H PRN PRN Reason: FEVER OR PAIN Last Admin: 09/15/16 22:01 Dose: 650 mg Aspirin (Asa -) 81 mg PO DAILY [facility] Last Admin: 09/17/16 09:59 Dose: 81 mg Diltiazem HCl (Cardizem Cd -) 180 mg PO DAILY [facility] Ertapenem (Invanz (Pre-Docked)) 1 gm IVPB DAILY [facility] Last Admin: 09/17/16 13:09 Dose: 1 gm Potassium Chloride/Dextrose/Sod Cl (D5-1/2ns+20 Meq Kcl -) 1,000 mls @ 75 mls/ hr IV ASDIR [facility] Last Admin: 09/17/16 20:30 Dose: 75 mls/hr Diltiazem HCl 125 mg/ Dextrose 125 mls @ 5 mls/hr IVPB TITR [facility]; 5 MG/HR PRN Reason: Protocol Last Admin: 09/17/16 07:47 Dose: 15 mls/hr Megestrol Acetate (Megace Oral Suspension -) 200 mg PO DAILY [facility] Last Admin: 09/17/16 10:01 Dose: 200 mg Metoprolol Succinate (Toprol Xl -) 200 mg PO DAILY [facility] Last Admin: 09/17/16 09:59 Dose: Not Given Metoprolol Tartrate (Lopressor Injection -) 5 mg IVPUSH Q4H PRN PRN Reason: TACHYCARDIA Last Admin: 09/17/16 08:04 Dose: 5 mg Multivitamins/Minerals/Vitamin C (Tab-A-Vit -) 1 tab PO DAILY [facility] Last Admin: 09/17/16 09:59 Dose: 1 tab Pantoprazole Sodium (Protonix -) 40 mg PO DAILY [facility] Last Admin: 09/17/16 09:59 Dose: 40 mg Tamsulosin HCl (Flomax -) 0.4 mg PO HS [facility] Ursodiol (Actigal -) 300 mg PO TIDCM [facility] Last Admin: 09/17/16 17:09 Dose: 300 mg - Objective Vital Signs: Vital Signs Temperature 97 F L 09/17/16 22:00 Pulse Rate 106 H 09/18/16 06:00 Respiratory Rate 20 09/18/16 06:00 Blood Pressure 134/88 09/18/16 06:00 O2 Sat by Pulse Oximetry (%) 98 09/17/16 21:00 Cardiovascular: Yes: Tachycardia, Pulse Irregular, S1, S2 Respiratory: Yes: Regular, CTA Bilaterally Gastrointestinal: Yes: Normal Bowel Sounds, Soft Labs: CBC, BMP 09/17/16 05:35 09/17/16 05:35 INR, PTT INR 1.62 (0.82-1.09) H 09/14/16 05:35 Problem List - Problems (1) Atrial fibrillation Assessment/Plan: HOLD XARELTO--CARDIO--AWAIT SURGERY RATE CONTROL WITH--CARDIZEM AND METOPROLOL LAST STRESS TEST 2013 NEGATIVE Code(s): I48.91 - UNSPECIFIED ATRIAL FIBRILLATION Qualifiers: Atrial fibrillation type: chronic Qualified Code(s): I48.2 - Chronic atrial fibrillation (2) Acute renal failure Assessment/Plan: IMPROVED IVF MONITOR RENAL FUNCTION Code(s): N17.9 - ACUTE KIDNEY FAILURE, UNSPECIFIED Qualifiers: Acute renal failure type: unspecified Qualified Code(s): N17.9 - Acute kidney failure, unspecified (3) Inguinal hernia, right Assessment/Plan: SURGERY --AWAIT F/U CLEARED FOR OR CARDIO CONSULT AND F/U NOTED Code(s): K40.90 - UNIL INGUINAL HERNIA, W/O OBST OR GANGR, NOT SPCF RECUR (4) UTI (urinary tract infection) Assessment/Plan: ABX PER ID Code(s): N39.0 - URINARY TRACT INFECTION, SITE NOT SPECIFIED
[2016-09-18] MEDS: URSODIOL 300 MG CAPSULE PO SCH ×3 (08:36→18:50)
[2016-09-18] MEDS: METOPROLOL SUCCINATE 100 MG TAB.SR.24H (FP) PO SCH ×2 (08:37→17:31)
[2016-09-18] MEDS: MULTIVITAMINS (DAILY MVI) TABLET (FP) PO SCH (09:20)
[2016-09-18] MEDS: PANTOPRAZOLE 40 MG TABLET (FP) PO SCH (09:20)
[2016-09-18] MEDS: ASPIRIN 81 MG CHEWABLE TABLETS PO SCH (11:29)
[2016-09-18] MEDS: MEGESTROL ACETATE 400 MG/10 ML UNIT DOSE CUP PO SCH (11:30)
[2016-09-18] MEDS: ERTAPENEM SODIUM 1 GM/50 ML PRE-DOCKED IVPB SCH (11:33)
[2016-09-18] MEDS: DILTIAZEM INJECTION 125 MG in DEXTROSE 5%-WATER - 100 ML IVPB SCH ×2 (12:50→23:45)
--- NOTE | 2016-09-18 13:59 | PN ---
Progress Note, Physician History of Present Illness: No chest pain or dyspnea. Afib rate controlled with HR 90-100s currently. - Current Medication List Current Medications: Active Medications Acetaminophen (Tylenol -) 650 mg PO Q4H PRN PRN Reason: FEVER OR PAIN Last Admin: 09/15/16 22:01 Dose: 650 mg Aspirin (Asa -) 81 mg PO DAILY [facility] Last Admin: 09/18/16 11:29 Dose: Not Given Digoxin (Lanoxin -) 0.125 mg PO DAILY [facility] Diltiazem HCl (Cardizem Cd -) 180 mg PO DAILY [facility] Last Admin: 09/18/16 09:20 Dose: 180 mg Ertapenem (Invanz (Pre-Docked)) 1 gm IVPB DAILY [facility] Last Admin: 09/18/16 11:33 Dose: 1 gm Potassium Chloride/Dextrose/Sod Cl (D5-1/2ns+20 Meq Kcl -) 1,000 mls @ 75 mls/ hr IV ASDIR [facility] Last Admin: 09/17/16 20:30 Dose: 75 mls/hr Diltiazem HCl 125 mg/ Dextrose 125 mls @ 5 mls/hr IVPB TITR [facility]; 5 MG/HR PRN Reason: Protocol Last Admin: 09/17/16 07:47 Dose: 15 mls/hr Megestrol Acetate (Megace Oral Suspension -) 200 mg PO DAILY [facility] Last Admin: 09/18/16 11:30 Dose: Not Given Metoprolol Succinate (Toprol Xl -) 200 mg PO DAILY [facility] Last Admin: 09/18/16 08:37 Dose: 200 mg Metoprolol Tartrate (Lopressor Injection -) 5 mg IVPUSH Q4H PRN PRN Reason: TACHYCARDIA Last Admin: 09/17/16 08:04 Dose: 5 mg Multivitamins/Minerals/Vitamin C (Tab-A-Vit -) 1 tab PO DAILY [facility] Last Admin: 09/18/16 09:20 Dose: 1 tab Pantoprazole Sodium (Protonix -) 40 mg PO DAILY [facility] Last Admin: 09/18/16 09:20 Dose: 40 mg Tamsulosin HCl (Flomax -) 0.4 mg PO HS [facility] Ursodiol (Actigal -) 300 mg PO TIDCM [facility] Last Admin: 09/18/16 08:36 Dose: 300 mg - Objective Vital Signs: Vital Signs Temperature 97.8 F 09/18/16 10:00 Pulse Rate 126 H 09/18/16 10:00 Respiratory Rate 18 09/18/16 10:00 Blood Pressure 115/69 09/18/16 10:00 O2 Sat by Pulse Oximetry (%) 98 09/18/16 09:00 Constitutional: Yes: Well Nourished, No Distress Eyes: Yes: Conjunctiva Clear, EOM Intact HENT: Yes: Atraumatic, Normocephalic Cardiovascular: Yes: Pulse Irregular. No: JVD Respiratory: Yes: CTA Bilaterally Gastrointestinal: Yes: Normal Bowel Sounds, Soft. No: Tenderness Edema: RLE: Trace Neurological: Yes: Alert, Oriented Labs: CBC, BMP 09/17/16 05:35 09/17/16 05:35 INR, PTT INR 1.62 (0.82-1.09) H 09/14/16 05:35 Assessment/Plan 86 yo male with HTN, chronic atrial fibrillation (on Xarelto). Admitted with diarrhea, generalized weakness, and right inguinal pain/mass -> right inguinal hernia. Cardiology was consulted for management of atrial fibrillation. Patient is also currently pending inguinal hernia surgical repair. Patient hypotensive with acute renal failure (Cr 4.6) on admission. 09/11/16 CT abd/pelvis: Bibasilar consolidation and small right pleural effusion. Large bilateral renal cysts. Large right inguinal hernia. Currently being treated for acute renal failure with IV fluids with improvement of Cr to 1.9 today. Currently on antibiotics for empiric treatment of pneumonia. 01/11/14 Lexiscan nuclear stress test: Negative for ischemia, LVEF 61% 09/12/16 Echocardiogram: Normal LV size and systolic function. Mild to mod MR. Mild TR. Mild AR. No pulmonary hypertension. Patient developed rapid afib yesterday evening. Started on cardizem gtt. RECS: Continue metoprolol succinate 200 mg po daily and cardizem CD 180 mg po daily for afib rate control. Currently rate controlled on cardizem gtt 10 mg/hr. Will wean as tolerated and increase oral cardizem as needed. Will add digoxin 0.125 mg po daily to current regimen. Patient may proceed with inguinal hernia repair as patient is rate controlled. Will resume patient's Xarelto after he has undergone his inguinal hernia repair and OK from bleeding risk standpoint per surgery. Will continue to follow. Please call with questions. Further recs as per renal/ID/surgery/family medicine.
[2016-09-18] MEDS: DIGOXIN 0.125 MG TABLET (FP) PO SCH (14:13)
--- NOTE | 2016-09-18 19:39 | PN ---
Progress Note, Physician History of Present Illness: No complaints Denies dysuria/suprapubic or flank pain No fever/ chills No c/o dyspnea/ cough - Current Medication List Current Medications: Active Medications Acetaminophen (Tylenol -) 650 mg PO Q4H PRN PRN Reason: FEVER OR PAIN Last Admin: 09/15/16 22:01 Dose: 650 mg Aspirin (Asa -) 81 mg PO DAILY [facility] Last Admin: 09/18/16 11:29 Dose: Not Given Digoxin (Lanoxin -) 0.125 mg PO DAILY [facility] Last Admin: 09/18/16 14:13 Dose: 0.125 mg Diltiazem HCl (Cardizem Cd -) 180 mg PO DAILY [facility] Last Admin: 09/18/16 09:20 Dose: 180 mg Ertapenem (Invanz (Pre-Docked)) 1 gm IVPB DAILY [facility] Last Admin: 09/18/16 11:33 Dose: 1 gm Potassium Chloride/Dextrose/Sod Cl (D5-1/2ns+20 Meq Kcl -) 1,000 mls @ 75 mls/ hr IV ASDIR [facility] Last Admin: 09/17/16 20:30 Dose: 75 mls/hr Diltiazem HCl 125 mg/ Dextrose 125 mls @ 5 mls/hr IVPB TITR [facility]; 5 MG/HR PRN Reason: Protocol Last Admin: 09/18/16 12:50 Dose: 5 mls/hr Megestrol Acetate (Megace Oral Suspension -) 200 mg PO DAILY [facility] Last Admin: 09/18/16 11:30 Dose: Not Given Metoprolol Succinate (Toprol Xl -) 200 mg PO DAILY [facility] Last Admin: 09/18/16 17:31 Dose: 200 mg Metoprolol Tartrate (Lopressor Injection -) 5 mg IVPUSH Q4H PRN PRN Reason: TACHYCARDIA Last Admin: 09/17/16 08:04 Dose: 5 mg Multivitamins/Minerals/Vitamin C (Tab-A-Vit -) 1 tab PO DAILY [facility] Last Admin: 09/18/16 09:20 Dose: 1 tab Pantoprazole Sodium (Protonix -) 40 mg PO DAILY [facility] Last Admin: 09/18/16 09:20 Dose: 40 mg Tamsulosin HCl (Flomax -) 0.4 mg PO HS [facility] Ursodiol (Actigal -) 300 mg PO TIDCM [facility] Last Admin: 09/18/16 18:50 Dose: 300 mg - Objective Vital Signs: Vital Signs Temperature 97.3 F L 09/18/16 18:00 Pulse Rate 131 H 09/18/16 18:00 Respiratory Rate 20 09/18/16 18:00 Blood Pressure 120/81 09/18/16 18:00 O2 Sat by Pulse Oximetry (%) 98 09/18/16 09:00 Constitutional: Yes: No Distress Eyes: Yes: Conjunctiva Clear Cardiovascular: Yes: Regular Rate and Rhythm, S1, S2 Respiratory: Yes: CTA Bilaterally Gastrointestinal: Yes: Normal Bowel Sounds, Soft Labs: CBC, BMP 09/17/16 05:35 09/17/16 05:35 INR, PTT INR 1.62 (0.82-1.09) H 09/14/16 05:35 Assessment/Plan R inguinal hernia Leukocytosis-improved Pneumonia UTI ESBL Diarrhea-improved Continue ertapenem Contact precautions
[2016-09-18] MEDS: TAMSULOSIN HCL 0.4 MG CAP.ER.24H (FP) PO SCH (22:57)
[2016-09-19] MEDS: DILTIAZEM INJECTION 125 MG in DEXTROSE 5%-WATER - 100 ML IVPB SCH ×2 (05:00→08:20)
[2016-09-19] MEDS ORDERED: DIGOXIN 0.5 MG/2 ML AMPUL ONE (08:10)
[2016-09-19] MEDS: URSODIOL 300 MG CAPSULE PO SCH ×3 (08:21→17:19)
[2016-09-19] MEDS ORDERED: DIGOXIN 0.5 MG/2 ML AMPUL IVPUSH ONE (08:28)
[2016-09-19] MEDS: DIGOXIN 0.125 MG TABLET (FP) PO SCH (09:31)
[2016-09-19] MEDS: MULTIVITAMINS (DAILY MVI) TABLET (FP) PO SCH (09:31)
[2016-09-19] MEDS: METOPROLOL SUCCINATE 100 MG TAB.SR.24H (FP) PO SCH (09:31)
[2016-09-19] MEDS: PANTOPRAZOLE 40 MG TABLET (FP) PO SCH (09:31)
[2016-09-19] MEDS: ASPIRIN 81 MG CHEWABLE TABLETS PO SCH (09:32)
[2016-09-19] MEDS: ERTAPENEM SODIUM 1 GM/50 ML PRE-DOCKED IVPB SCH (09:42)
--- NOTE | 2016-09-19 10:13 | PN ---
Progress Note, Physician History of Present Illness: PT NOTED TO BE IN RAPID AFIB ON CARDIZEM DRIP--AT 15 STILL RATE OF 120 no cp or sob - Current Medication List Current Medications: Active Medications Acetaminophen (Tylenol -) 650 mg PO Q4H PRN PRN Reason: FEVER OR PAIN Last Admin: 09/15/16 22:01 Dose: 650 mg Aspirin (Asa -) 81 mg PO DAILY [facility] Last Admin: 09/19/16 09:32 Dose: 81 mg Digoxin (Lanoxin -) 0.125 mg PO DAILY [facility] Last Admin: 09/19/16 09:31 Dose: 0.125 mg Digoxin (Lanoxin Injection -) 0.25 mg IVPUSH ONCE ONE Stop: 09/19/16 08:29 Last Admin: 09/19/16 09:42 Dose: 0.25 mg Diltiazem HCl (Cardizem Cd -) 240 mg PO DAILY [facility] Last Admin: 09/19/16 09:32 Dose: 240 mg Ertapenem (Invanz (Pre-Docked)) 1 gm IVPB DAILY [facility] Last Admin: 09/18/16 11:33 Dose: 1 gm Diltiazem HCl 125 mg/ Dextrose 125 mls @ 5 mls/hr IVPB TITR JEAN-PAUL; 5 MG/HR PRN Reason: Protocol Last Admin: 09/19/16 08:20 Dose: 15 mls/hr Metoprolol Succinate (Toprol Xl -) 200 mg PO DAILY [facility] Last Admin: 09/19/16 09:31 Dose: 200 mg Metoprolol Tartrate (Lopressor Injection -) 5 mg IVPUSH Q4H PRN PRN Reason: TACHYCARDIA Last Admin: 09/17/16 08:04 Dose: 5 mg Multivitamins/Minerals/Vitamin C (Tab-A-Vit -) 1 tab PO DAILY [facility] Last Admin: 09/19/16 09:31 Dose: 1 tab Pantoprazole Sodium (Protonix -) 40 mg PO DAILY [facility] Last Admin: 09/19/16 09:31 Dose: 40 mg Tamsulosin HCl (Flomax -) 0.4 mg PO HS [facility] Last Admin: 09/18/16 22:57 Dose: 0.4 mg Ursodiol (Actigal -) 300 mg PO TIDCM [facility] Last Admin: 09/19/16 08:21 Dose: 300 mg - Objective Vital Signs: Vital Signs Temperature 97.8 F 09/19/16 07:50 Pulse Rate 141 H 09/19/16 09:42 Respiratory Rate 20 09/19/16 07:50 Blood Pressure 136/66 09/19/16 08:20 O2 Sat by Pulse Oximetry (%) 98 09/18/16 21:00 Cardiovascular: Yes: Tachycardia, Pulse Irregular, S1, S2 Respiratory: Yes: Regular, CTA Bilaterally Gastrointestinal: Yes: Normal Bowel Sounds, Soft Labs: CBC, BMP 09/17/16 05:35 09/17/16 05:35 INR, PTT INR 1.62 (0.82-1.09) H 09/14/16 05:35 Problem List - Problems (1) Atrial fibrillation Assessment/Plan: HOLD XARELTO--CARDIO--AWAIT SURGERY RATE CONTROL WITH--CARDIZEM AND METOPROLOL AND DIG STILL RAPID--??AMIO LAST STRESS TEST 2013 NEGATIVE Code(s): I48.91 - UNSPECIFIED ATRIAL FIBRILLATION Qualifiers: Atrial fibrillation type: chronic Qualified Code(s): I48.2 - Chronic atrial fibrillation (2) Acute renal failure Assessment/Plan: IMPROVED IVF MONITOR RENAL FUNCTION Code(s): N17.9 - ACUTE KIDNEY FAILURE, UNSPECIFIED Qualifiers: Acute renal failure type: unspecified Qualified Code(s): N17.9 - Acute kidney failure, unspecified (3) Inguinal hernia, right Assessment/Plan: SURGERY --AWAIT F/U CARDIO CONSULT AND F/U NOTED Code(s): K40.90 - UNIL INGUINAL HERNIA, W/O OBST OR GANGR, NOT SPCF RECUR (4) UTI (urinary tract infection) Assessment/Plan: ESBL ABX PER ID Code(s): N39.0 - URINARY TRACT INFECTION, SITE NOT SPECIFIED
[2016-09-19 10:40] LABS: MCH 29.3 pg (25.7-33.7); MCHC 33.4 g/dl (32.0-35.9); MEAN CELL VOLUME 87.8 fl (80-96); MEAN PLT VOLUME 8.2 fl (7.5-11.1); PLATELET COUNT 383 K/MM3 (134-434); RDW 15.5 % (11.9-15.9); WHITE BLOOD COUNT 12.1 K/mm3 (4.0-10.0)
[2016-09-19 11:05] LABS: ALBUMIN 2.4 g/dl (3.4-5.0); ANION GAP 9 (8-16); BILIRUBIN,TOTAL 0.6 mg/dL (0.2-1.0); CALCIUM 8.2 mg/dL (8.5-10.1); CO2 25 mmol/L (21-32); CREATININE 0.9 mg/dL (0.7-1.3); GLUCOSE,RANDOM 90 mg/dL (74-106); SGOT/AST 11 U/L (15-37); SGPT/ALT 27 U/L (12-78); TOT PROT 6.2 g/dl (6.4-8.2)
[2016-09-19 11:06] LABS: ALK PHOS 125 U/L (45-117)
[2016-09-19 12:03] LABS: METAMYELOCYTE 1 % (0-2)
--- NOTE | 2016-09-19 14:04 | PN ---
Progress Note, Physician History of Present Illness: No chest pain or dyspnea. Afib rate currently with HR 70-90s. However, patient' s cardizem gtt had to be increased to 15 mg/hr and was given digoxin 0.25 mg IVP x1 this AM. - Current Medication List Current Medications: Active Medications Acetaminophen (Tylenol -) 650 mg PO Q4H PRN PRN Reason: FEVER OR PAIN Last Admin: 09/15/16 22:01 Dose: 650 mg Aspirin (Asa -) 81 mg PO DAILY [facility] Last Admin: 09/19/16 09:32 Dose: 81 mg Digoxin (Lanoxin -) 0.125 mg PO DAILY [facility] Last Admin: 09/19/16 09:31 Dose: 0.125 mg Diltiazem HCl (Cardizem Cd -) 240 mg PO DAILY [facility] Last Admin: 09/19/16 09:32 Dose: 240 mg Ertapenem (Invanz (Pre-Docked)) 1 gm IVPB DAILY [facility] Last Admin: 09/18/16 11:33 Dose: 1 gm Diltiazem HCl 125 mg/ Dextrose 125 mls @ 5 mls/hr IVPB TITR JEAN-PAUL; 5 MG/HR PRN Reason: Protocol Last Admin: 09/19/16 08:20 Dose: 15 mls/hr Metoprolol Succinate (Toprol Xl -) 200 mg PO DAILY [facility] Last Admin: 09/19/16 09:31 Dose: 200 mg Metoprolol Tartrate (Lopressor Injection -) 5 mg IVPUSH Q4H PRN PRN Reason: TACHYCARDIA Last Admin: 09/17/16 08:04 Dose: 5 mg Multivitamins/Minerals/Vitamin C (Tab-A-Vit -) 1 tab PO DAILY [facility] Last Admin: 09/19/16 09:31 Dose: 1 tab Pantoprazole Sodium (Protonix -) 40 mg PO DAILY [facility] Last Admin: 09/19/16 09:31 Dose: 40 mg Tamsulosin HCl (Flomax -) 0.4 mg PO HS [facility] Last Admin: 09/18/16 22:57 Dose: 0.4 mg Ursodiol (Actigal -) 300 mg PO TIDCM [facility] Last Admin: 09/19/16 11:25 Dose: 300 mg - Objective Vital Signs: Vital Signs Temperature 97.8 F 09/19/16 07:50 Pulse Rate 141 H 09/19/16 09:42 Respiratory Rate 20 0222/17 09:00 Blood Pressure 136/66 09/19/16 08:20 O2 Sat by Pulse Oximetry (%) 98 09/19/16 09:00 Constitutional: Yes: Well Nourished, No Distress Eyes: Yes: Conjunctiva Clear, EOM Intact Cardiovascular: Yes: Tachycardia, Pulse Irregular. No: JVD, Murmur Respiratory: Yes: CTA Bilaterally Gastrointestinal: Yes: Normal Bowel Sounds, Soft. No: Tenderness Edema: No Neurological: Yes: Alert, Oriented, Cran Nerves II-XII Intact Labs: CBC, BMP 09/19/16 10:25 09/19/16 10:25 INR, PTT INR 1.62 (0.82-1.09) H 09/14/16 05:35 Assessment/Plan 86 yo male with HTN, chronic atrial fibrillation (on Xarelto). Admitted with diarrhea, generalized weakness, and right inguinal pain/mass -> right inguinal hernia. Cardiology was consulted for management of atrial fibrillation. Patient is also currently pending inguinal hernia surgical repair. Patient hypotensive with acute renal failure (Cr 4.6) on admission. 09/11/16 CT abd/pelvis: Bibasilar consolidation and small right pleural effusion. Large bilateral renal cysts. Large right inguinal hernia. Currently being treated for acute renal failure with IV fluids with improvement of Cr to 1.9 today. Currently on antibiotics for empiric treatment of pneumonia. 01/11/14 Lexiscan nuclear stress test: Negative for ischemia, LVEF 61% 09/12/16 Echocardiogram: Normal LV size and systolic function. Mild to mod MR. Mild TR. Mild AR. No pulmonary hypertension. Patient developed rapid afib this AM and was given digoxin IVP x1 and cardizem gtt was increased to 15 mg/hr. RECS: Will change metoprolol to atenolol 50 mg po bid and increase cardizem CD to 360 mg po daily. Continue digoxin 0.125 mg po daily No role for amiodarone for patient with long standing chronic atrial fibrillation as patient is not likely to convert to sinus rhythm. Currently rate controlled on cardizem gtt 15 mg/hr. Will wean as tolerated. Patient may proceed with surgery if HR is controlled on diltiazem gtt. Will resume patient's Xarelto after he has undergone his inguinal hernia repair and OK from bleeding risk standpoint per surgery. Will continue to follow. Please call with questions. Further recs as per renal/ID/surgery/family medicine.
--- NOTE | 2016-09-19 14:25 | PN ---
Progress Note (short form) - Note Progress Note: Surgery-Dr. Srivastava Patient seen and examined. Patient states he is doing ok, not having much pain. Inguinal hernia repair was previously cancelled due to rapid afib. Patient states he would still like his hernia fixed. Last Vital Signs Temp Pulse Resp BP Pulse Ox 97.8 F 81 20 115/72 98 09/19/16 07:50 09/19/16 14:03 09/19/16 14:03 09/19/16 14:03 09/19/16 09:00 CBC, BMP 09/19/16 10:25 09/19/16 10:25 Exam: Gen: NAD Abd/groin: Soft, nontender, nondistended, non-reducible right inguinal hernia without tenderness or erythema Problem List - Problems (1) Inguinal hernia, right Assessment/Plan: Right inguinal hernia, non-reducible, non-tender Discussed with cardiology- patient is currently rate controlled on cardizem gtt and will be weaned, patient may proceed with hernia repair if HR controlled Patient discussed with Dr. Srivastava, will plan for possible OR Saturday09/21/16 for open right inguinal hernia repair Code(s): K40.90 - UNIL INGUINAL HERNIA, W/O OBST OR GANGR, NOT SPCF RECUR
[2016-09-19] MEDS: ATENOLOL 50 MG TABLET (FP) PO ONE ×2 (15:01→16:21)
[2016-09-19] MEDS: TAMSULOSIN HCL 0.4 MG CAP.ER.24H (FP) PO SCH (22:09)
[2016-09-19] MEDS: ATENOLOL 50 MG TABLET (FP) PO SCH (22:10)
[2016-09-20] MEDS: URSODIOL 300 MG CAPSULE PO SCH ×3 (08:33→17:37)
[2016-09-20] MEDS ORDERED: PT OWN MED DRAWER 7, Y5N ONE (09:08)
--- NOTE | 2016-09-20 09:13 | PN ---
Progress Note, Physician History of Present Illness: PT NOTED TO BE IN RAPID AFIB ON CARDIZEM DRIP--METOPROLOL/CARDIZEM AND DIG CARDIO F/U NOTED AND APPRECIATED - Current Medication List Current Medications: Active Medications Acetaminophen (Tylenol -) 650 mg PO Q4H PRN PRN Reason: FEVER OR PAIN Last Admin: 09/15/16 22:01 Dose: 650 mg Aspirin (Asa -) 81 mg PO DAILY [facility] Last Admin: 09/19/16 09:32 Dose: 81 mg Atenolol (Tenormin -) 50 mg PO BID [facility] Last Admin: 09/19/16 22:10 Dose: Not Given Digoxin (Lanoxin -) 0.125 mg PO DAILY [facility] Last Admin: 09/19/16 09:31 Dose: 0.125 mg Diltiazem HCl (Cardizem Cd -) 360 mg PO DAILY [facility] Ertapenem (Invanz (Pre-Docked)) 1 gm IVPB DAILY [facility] Last Admin: 09/19/16 09:42 Dose: 1 gm Diltiazem HCl 125 mg/ Dextrose 125 mls @ 5 mls/hr IVPB TITR JEAN-PAUL; 5 MG/HR PRN Reason: Protocol Last Admin: 09/19/16 08:20 Dose: 15 mls/hr Metoprolol Tartrate (Lopressor Injection -) 5 mg IVPUSH Q4H PRN PRN Reason: TACHYCARDIA Last Admin: 09/17/16 08:04 Dose: 5 mg Multivitamins/Minerals/Vitamin C (Tab-A-Vit -) 1 tab PO DAILY [facility] Last Admin: 09/19/16 09:31 Dose: 1 tab Pantoprazole Sodium (Protonix -) 40 mg PO DAILY [facility] Last Admin: 09/19/16 09:31 Dose: 40 mg Tamsulosin HCl (Flomax -) 0.4 mg PO HS [facility] Last Admin: 09/19/16 22:09 Dose: 0.4 mg Ursodiol (Actigal -) 300 mg PO TIDCM [facility] Last Admin: 09/20/16 08:33 Dose: 300 mg - Objective Vital Signs: Vital Signs Temperature 97.7 F 09/20/16 02:00 Pulse Rate 90 09/20/16 06:00 Respiratory Rate 20 09/20/16 06:00 Blood Pressure 120/66 09/20/16 06:00 O2 Sat by Pulse Oximetry (%) 95 09/19/16 21:00 Cardiovascular: Yes: Tachycardia, Pulse Irregular, S1, S2 Respiratory: Yes: Regular, CTA Bilaterally Gastrointestinal: Yes: Normal Bowel Sounds, Soft Labs: CBC, BMP 09/19/16 10:25 09/19/16 10:25 INR, PTT INR 1.62 (0.82-1.09) H 09/14/16 05:35 Problem List - Problems (1) Atrial fibrillation Code(s): I48.91 - UNSPECIFIED ATRIAL FIBRILLATION Qualifiers: Atrial fibrillation type: chronic Qualified Code(s): I48.2 - Chronic atrial fibrillation (2) Acute renal failure Code(s): N17.9 - ACUTE KIDNEY FAILURE, UNSPECIFIED Qualifiers: Acute renal failure type: unspecified Qualified Code(s): N17.9 - Acute kidney failure, unspecified (3) Inguinal hernia, right Code(s): K40.90 - UNIL INGUINAL HERNIA, W/O OBST OR GANGR, NOT SPCF RECUR (4) UTI (urinary tract infection) Code(s): N39.0 - URINARY TRACT INFECTION, SITE NOT SPECIFIED
--- NOTE | 2016-09-20 09:31 | PN ---
Progress Note (short form) - Note Progress Note: Attending Surgeon Patient seen in f/u; no c/o remains on Cardizem gtt and antibiotics. VSS AF; pulse > 100 and irregular abdomen soft; flat and non tender; hernia easily reducible. IMP:reducible [facility]: I advise non operative tx.; risk stratification calculated w/ACS-NSQIP Surgical Risk Calculator and he is at above average risk for serious outcomes including but not limited to cardiac/UTI which he is currently being txed for among others. I have discussed this is depth with the patient. Vikram Srivastava MD FACS
--- NOTE | 2016-09-20 09:32 | PN ---
Progress Note, Physician History of Present Illness: No chest pain or dyspnea. Afib rate currently with HR 90s. Cardizem gtt was discontined yesterday early evening due to bradycardia and pauses. Currently rate controlled without gtt. - Current Medication List Current Medications: Active Medications Acetaminophen (Tylenol -) 650 mg PO Q4H PRN PRN Reason: FEVER OR PAIN Last Admin: 09/15/16 22:01 Dose: 650 mg Aspirin (Asa -) 81 mg PO DAILY [facility] Last Admin: 09/19/16 09:32 Dose: 81 mg Atenolol (Tenormin -) 50 mg PO BID [facility] Last Admin: 09/19/16 22:10 Dose: Not Given Digoxin (Lanoxin -) 0.125 mg PO DAILY [facility] Last Admin: 09/19/16 09:31 Dose: 0.125 mg Diltiazem HCl (Cardizem Cd -) 240 mg PO DAILY [facility] Ertapenem (Invanz (Pre-Docked)) 1 gm IVPB DAILY [facility] Last Admin: 09/19/16 09:42 Dose: 1 gm Metoprolol Tartrate (Lopressor Injection -) 5 mg IVPUSH Q4H PRN PRN Reason: TACHYCARDIA Last Admin: 09/17/16 08:04 Dose: 5 mg Multivitamins/Minerals/Vitamin C (Tab-A-Vit -) 1 tab PO DAILY [facility] Last Admin: 09/19/16 09:31 Dose: 1 tab Pantoprazole Sodium (Protonix -) 40 mg PO DAILY [facility] Last Admin: 09/19/16 09:31 Dose: 40 mg Tamsulosin HCl (Flomax -) 0.4 mg PO HS [facility] Last Admin: 09/19/16 22:09 Dose: 0.4 mg Ursodiol (Actigal -) 300 mg PO TIDCM [facility] Last Admin: 09/20/16 08:33 Dose: 300 mg - Objective Vital Signs: Vital Signs Temperature 97.7 F 09/20/16 02:00 Pulse Rate 90 09/20/16 06:00 Respiratory Rate 20 09/20/16 06:00 Blood Pressure 120/66 09/20/16 06:00 O2 Sat by Pulse Oximetry (%) 95 09/19/16 21:00 Constitutional: Yes: Well Nourished, No Distress Eyes: Yes: Conjunctiva Clear, EOM Intact HENT: Yes: Atraumatic, Normocephalic Cardiovascular: Yes: Pulse Irregular. No: JVD, Murmur Respiratory: Yes: CTA Bilaterally Gastrointestinal: Yes: Normal Bowel Sounds, Soft Edema: No Neurological: Yes: Alert, Oriented, Cran Nerves II-XII Intact Labs: CBC, BMP 09/19/16 10:25 09/19/16 10:25 INR, PTT INR 1.62 (0.82-1.09) H 09/14/16 05:35 Assessment/Plan 86 yo male with HTN, chronic atrial fibrillation (on Xarelto). Admitted with diarrhea, generalized weakness, and right inguinal pain/mass -> right inguinal hernia. Cardiology was consulted for management of atrial fibrillation. Patient is also currently pending inguinal hernia surgical repair. Patient hypotensive with acute renal failure (Cr 4.6) on admission. 09/11/16 CT abd/pelvis: Bibasilar consolidation and small right pleural effusion. Large bilateral renal cysts. Large right inguinal hernia. Currently being treated for acute renal failure with IV fluids with improvement of Cr to 1.9 today. Currently on antibiotics for empiric treatment of pneumonia. 01/11/14 Lexiscan nuclear stress test: Negative for ischemia, LVEF 61% 09/12/16 Echocardiogram: Normal LV size and systolic function. Mild to mod MR. Mild TR. Mild AR. No pulmonary hypertension. Currently rate controlled with HR 80-90s. HR < 120 accetpable. Off cardizem gtt since yesterday early evening. RECS: Continue atenolol 50 mg po bid, and digoxin 0.125 mg po daily. Will keep cardizem CD at 240 mg po daily for now. May given IVP of cardizem or metoprolol as needed. No role for amiodarone for patient with long standing chronic atrial fibrillation as patient is not likely to convert to sinus rhythm. Patient may proceed with his pending surgery this Saturday. Will resume patient's Xarelto after he has undergone his inguinal hernia repair and OK from bleeding risk standpoint per surgery. Will continue to follow. Please call with questions. Further recs as per renal/ID/surgery/family medicine.
[2016-09-20] MEDS: DIGOXIN 0.125 MG TABLET (FP) PO SCH (10:00)
[2016-09-20] MEDS: ATENOLOL 50 MG TABLET (FP) PO SCH ×2 (10:01→22:05)
[2016-09-20] MEDS: MULTIVITAMINS (DAILY MVI) TABLET (FP) PO SCH (10:01)
[2016-09-20] MEDS: PANTOPRAZOLE 40 MG TABLET (FP) PO SCH (10:01)
[2016-09-20] MEDS: ERTAPENEM SODIUM 1 GM/50 ML PRE-DOCKED IVPB SCH (11:56)
--- NOTE | 2016-09-20 15:15 | PN ---
Progress Note, Physician History of Present Illness: Awake, alert No complaints denies abdominal pain No dysuria/ hematuria - Current Medication List Current Medications: Active Medications Acetaminophen (Tylenol -) 650 mg PO Q4H PRN PRN Reason: FEVER OR PAIN Last Admin: 09/15/16 22:01 Dose: 650 mg Atenolol (Tenormin -) 50 mg PO BID [facility] Last Admin: 09/20/16 10:01 Dose: 50 mg Digoxin (Lanoxin -) 0.125 mg PO DAILY [facility] Last Admin: 09/20/16 10:00 Dose: 0.125 mg Diltiazem HCl (Cardizem Cd -) 240 mg PO DAILY [facility] Last Admin: 09/20/16 10:02 Dose: 240 mg Ertapenem (Invanz (Pre-Docked)) 1 gm IVPB DAILY [facility] Last Admin: 09/20/16 11:56 Dose: 1 gm Metoprolol Tartrate (Lopressor Injection -) 5 mg IVPUSH Q4H PRN PRN Reason: TACHYCARDIA Last Admin: 09/17/16 08:04 Dose: 5 mg Multivitamins/Minerals/Vitamin C (Tab-A-Vit -) 1 tab PO DAILY [facility] Last Admin: 09/20/16 10:01 Dose: 1 tab Pantoprazole Sodium (Protonix -) 40 mg PO DAILY [facility] Last Admin: 09/20/16 10:01 Dose: 40 mg Tamsulosin HCl (Flomax -) 0.4 mg PO HS [facility] Last Admin: 09/19/16 22:09 Dose: 0.4 mg Ursodiol (Actigal -) 300 mg PO TIDCM [facility] Last Admin: 09/20/16 11:57 Dose: 300 mg - Objective Vital Signs: Vital Signs Temperature 97.9 F 09/20/16 10:00 Pulse Rate 91 H 09/20/16 10:00 Respiratory Rate 18 09/20/16 10:00 Blood Pressure 140/69 09/20/16 10:00 O2 Sat by Pulse Oximetry (%) 100 09/20/16 09:00 Constitutional: Yes: No Distress Eyes: Yes: Conjunctiva Clear Cardiovascular: Yes: Regular Rate and Rhythm, S1, S2 Respiratory: No: CTA Bilaterally Gastrointestinal: Yes: Normal Bowel Sounds, Soft, Abdomen, Obese. No: Tenderness Edema: Yes Labs: CBC, BMP 09/19/16 10:25 09/19/16 10:25 INR, PTT INR 1.62 (0.82-1.09) H 09/14/16 05:35 Assessment/Plan R inguinal hernia Leukocytosis-improved Pneumonia UTI ESBL Diarrhea-improved Continue ertapenem Contact precautions
[2016-09-20] MEDS: TAMSULOSIN HCL 0.4 MG CAP.ER.24H (FP) PO SCH (22:05)
[2016-09-21 07:14] LABS: MCH 29.3 pg (25.7-33.7); MCHC 33.4 g/dl (32.0-35.9); MEAN PLT VOLUME 9.7 fl (7.5-11.1); PLATELET COUNT 362 K/MM3 (134-434); RDW 15.5 % (11.9-15.9); WHITE BLOOD COUNT 11.7 K/mm3 (4.0-10.0)
[2016-09-21 08:03] LABS: CALCIUM 8.4 mg/dL (8.5-10.1)
[2016-09-21 08:06] LABS: ALBUMIN 2.3 g/dl (3.4-5.0); ALK PHOS 107 U/L (45-117); ANION GAP 11 (8-16); BILIRUBIN,TOTAL 0.7 mg/dL (0.2-1.0); CO2 24 mmol/L (21-32); GLUCOSE,RANDOM 88 mg/dL (74-106); SGOT/AST 11 U/L (15-37); SGPT/ALT 18 U/L (12-78); TOT PROT 5.8 g/dl (6.4-8.2)
[2016-09-21 09:18] LABS: METAMYELOCYTE 1 % (0-2); PLATELET ESTIMATE ADEQUATE (NORMAL)
--- NOTE | 2016-09-21 09:43 | PN ---
Progress Note, Physician History of Present Illness: REFUSING SURGERY TODAY STILL WITH PAIN - Current Medication List Current Medications: Active Medications Acetaminophen (Tylenol -) 650 mg PO Q4H PRN PRN Reason: FEVER OR PAIN Last Admin: 09/15/16 22:01 Dose: 650 mg Atenolol (Tenormin -) 50 mg PO BID [facility] Last Admin: 09/20/16 22:05 Dose: 50 mg Digoxin (Lanoxin -) 0.125 mg PO DAILY [facility] Last Admin: 09/20/16 10:00 Dose: 0.125 mg Diltiazem HCl (Cardizem Cd -) 240 mg PO DAILY [facility] Last Admin: 09/20/16 10:02 Dose: 240 mg Ertapenem (Invanz (Pre-Docked)) 1 gm IVPB DAILY [facility] Last Admin: 09/20/16 11:56 Dose: 1 gm Metoprolol Tartrate (Lopressor Injection -) 5 mg IVPUSH Q4H PRN PRN Reason: TACHYCARDIA Last Admin: 09/17/16 08:04 Dose: 5 mg Multivitamins/Minerals/Vitamin C (Tab-A-Vit -) 1 tab PO DAILY [facility] Last Admin: 09/20/16 10:01 Dose: 1 tab Pantoprazole Sodium (Protonix -) 40 mg PO DAILY [facility] Last Admin: 09/20/16 10:01 Dose: 40 mg Tamsulosin HCl (Flomax -) 0.4 mg PO HS [facility] Last Admin: 09/20/16 22:05 Dose: 0.4 mg Ursodiol (Actigal -) 300 mg PO TIDCM [facility] Last Admin: 09/20/16 17:37 Dose: 300 mg - Objective Vital Signs: Vital Signs Temperature 97.5 F L 09/21/16 08:31 Pulse Rate 89 09/21/16 08:31 Respiratory Rate 20 09/21/16 08:31 Blood Pressure 139/72 09/21/16 08:31 O2 Sat by Pulse Oximetry (%) 96 09/20/16 21:00 Cardiovascular: Yes: Pulse Irregular, S1, S2 Respiratory: Yes: Regular, CTA Bilaterally Gastrointestinal: Yes: Normal Bowel Sounds, Soft Labs: CBC, BMP 09/21/16 05:35 INR, PTT INR 1.62 (0.82-1.09) H 09/14/16 05:35 Problem List - Problems (1) Acute renal failure Assessment/Plan: IMPROVED MONITOR RENAL FUNCTION Code(s): N17.9 - ACUTE KIDNEY FAILURE, UNSPECIFIED Qualifiers: Acute renal failure type: unspecified Qualified Code(s): N17.9 - Acute kidney failure, unspecified (2) Atrial fibrillation Assessment/Plan: HOLD XARELTO--CARDIO--BRIDGE WITH LOVENOX MONITOR RATE LAST STRESS TEST 2013 NEGATIVE CARDIO ON BOARD--CLEARED FOR PROCEDURE Code(s): I48.91 - UNSPECIFIED ATRIAL FIBRILLATION Qualifiers: Atrial fibrillation type: chronic Qualified Code(s): I48.2 - Chronic atrial fibrillation (3) Diarrhea Code(s): R19.7 - DIARRHEA, UNSPECIFIED Qualifiers: Diarrhea type: unspecified type Qualified Code(s): R19.7 - Diarrhea, unspecified (4) Inguinal hernia, right Assessment/Plan: SURGICAL CONSULT NOTED --2ND OPINION REGARDING REPAIR Code(s): K40.90 - UNIL INGUINAL HERNIA, W/O OBST OR GANGR, NOT SPCF RECUR (5) Pneumonia Assessment/Plan: IV ABX ID CONSULT NOTED Microbiology 09/12/16 13:20 Blood Culture - Preliminary Blood - Peripheral Venous NO GROWTH OBTAINED AFTER 24 HOURS, INCUBATION TO CONTINUE FOR 4 DAYS. 09/12/16 13:25 Blood Culture - Preliminary Blood - Peripheral Venous NO GROWTH OBTAINED AFTER 24 HOURS, INCUBATION TO CONTINUE FOR 4 DAYS. 09/13/16 01:20 Norovirus GI - Preliminary Stool Norovirus GII - Preliminary 09/13/16 01:20 Clostridium difficile Antigen (BREANA) - Final Stool Clostridium difficile Toxin Assay - Final CXR--ATELETASIS Code(s): J18.9 - PNEUMONIA, UNSPECIFIED ORGANISM (6) Sepsis Assessment/Plan: IV ABX ID MONITOR Code(s): A41.9 - SEPSIS, UNSPECIFIED ORGANISM
[2016-09-21] MEDS: ERTAPENEM SODIUM 1 GM/50 ML PRE-DOCKED IVPB SCH (11:08)
[2016-09-21] MEDS: URSODIOL 300 MG CAPSULE PO SCH ×3 (11:08→17:30)
[2016-09-21] MEDS: DIGOXIN 0.125 MG TABLET (FP) PO SCH (11:08)
[2016-09-21] MEDS: PANTOPRAZOLE 40 MG TABLET (FP) PO SCH (11:09)
[2016-09-21] MEDS: MULTIVITAMINS (DAILY MVI) TABLET (FP) PO SCH (11:09)
[2016-09-21] MEDS: ATENOLOL 50 MG TABLET (FP) PO SCH ×2 (11:09→21:14)
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
--- NOTE | 2016-09-21 12:47 | PN ---
Progress Note, Physician History of Present Illness: Awake, alert No complaints No c/o abdominal pain No c/o dysuria No fever/ chills - Current Medication List Current Medications: Active Medications Acetaminophen (Tylenol -) 650 mg PO Q4H PRN PRN Reason: FEVER OR PAIN Last Admin: 09/15/16 22:01 Dose: 650 mg Atenolol (Tenormin -) 50 mg PO BID [facility] Last Admin: 09/21/16 11:09 Dose: 50 mg Digoxin (Lanoxin -) 0.125 mg PO DAILY [facility] Last Admin: 09/21/16 11:08 Dose: 0.125 mg Diltiazem HCl (Cardizem Cd -) 240 mg PO DAILY [facility] Last Admin: 09/21/16 11:08 Dose: 240 mg Metoprolol Tartrate (Lopressor Injection -) 5 mg IVPUSH Q4H PRN PRN Reason: TACHYCARDIA Last Admin: 09/17/16 08:04 Dose: 5 mg Multivitamins/Minerals/Vitamin C (Tab-A-Vit -) 1 tab PO DAILY [facility] Last Admin: 09/21/16 11:09 Dose: 1 tab Pantoprazole Sodium (Protonix -) 40 mg PO DAILY [facility] Last Admin: 09/21/16 11:09 Dose: 40 mg Tamsulosin HCl (Flomax -) 0.4 mg PO HS [facility] Last Admin: 09/20/16 22:05 Dose: 0.4 mg Ursodiol (Actigal -) 300 mg PO TIDCM [facility] Last Admin: 09/21/16 11:53 Dose: 300 mg - Objective Vital Signs: Vital Signs Temperature 97.5 F L 09/21/16 10:00 Pulse Rate 89 09/21/16 11:08 Respiratory Rate 20 09/21/16 10:00 Blood Pressure 140/81 09/21/16 10:00 O2 Sat by Pulse Oximetry (%) 96 09/20/16 21:00 Constitutional: Yes: No Distress Eyes: Yes: Conjunctiva Clear Cardiovascular: Yes: Regular Rate and Rhythm, S1, S2 Respiratory: Yes: CTA Bilaterally Gastrointestinal: Yes: Normal Bowel Sounds, Soft, Other (+ R inguinal hernia). No: Tenderness Edema: No Labs: CBC, BMP 09/21/16 05:35 09/21/16 05:35 INR, PTT INR 1.62 (0.82-1.09) H 09/14/16 05:35 Assessment/Plan R inguinal hernia Leukocytosis-improved Pneumonia Sepsis- resolved UTI ESBL Diarrhea-improved D/C antibiotics Observe off
--- NOTE | 2016-09-21 13:13 | PN ---
Progress Note, Physician History of Present Illness: No chest pain or dyspnea. Afib currently rate controlled on current oral regimen. - Current Medication List Current Medications: Active Medications Acetaminophen (Tylenol -) 650 mg PO Q4H PRN PRN Reason: FEVER OR PAIN Last Admin: 09/15/16 22:01 Dose: 650 mg Atenolol (Tenormin -) 50 mg PO BID [facility] Last Admin: 09/21/16 11:09 Dose: 50 mg Digoxin (Lanoxin -) 0.125 mg PO DAILY [facility] Last Admin: 09/21/16 11:08 Dose: 0.125 mg Diltiazem HCl (Cardizem Cd -) 240 mg PO DAILY [facility] Last Admin: 09/21/16 11:08 Dose: 240 mg Metoprolol Tartrate (Lopressor Injection -) 5 mg IVPUSH Q4H PRN PRN Reason: TACHYCARDIA Last Admin: 09/17/16 08:04 Dose: 5 mg Multivitamins/Minerals/Vitamin C (Tab-A-Vit -) 1 tab PO DAILY [facility] Last Admin: 09/21/16 11:09 Dose: 1 tab Pantoprazole Sodium (Protonix -) 40 mg PO DAILY [facility] Last Admin: 09/21/16 11:09 Dose: 40 mg Tamsulosin HCl (Flomax -) 0.4 mg PO HS [facility] Last Admin: 09/20/16 22:05 Dose: 0.4 mg Ursodiol (Actigal -) 300 mg PO TIDCM [facility] Last Admin: 09/21/16 11:53 Dose: 300 mg - Objective Vital Signs: Vital Signs Temperature 97.5 F L 09/21/16 10:00 Pulse Rate 89 09/21/16 11:08 Respiratory Rate 20 09/21/16 10:00 Blood Pressure 140/81 09/21/16 10:00 O2 Sat by Pulse Oximetry (%) 96 09/20/16 21:00 Constitutional: Yes: Well Nourished, No Distress Eyes: Yes: Conjunctiva Clear, EOM Intact HENT: Yes: Atraumatic, Normocephalic Cardiovascular: Yes: Pulse Irregular. No: JVD, Murmur Respiratory: Yes: CTA Bilaterally Gastrointestinal: Yes: Normal Bowel Sounds, Soft. No: Tenderness Edema: No Neurological: Yes: Alert, Oriented, Cran Nerves II-XII Intact Psychiatric: Yes: WNL Labs: CBC, BMP 09/21/16 05:35 09/21/16 05:35 INR, PTT INR 1.62 (0.82-1.09) H 09/14/16 05:35 Assessment/Plan 86 yo male with HTN, chronic atrial fibrillation (on Xarelto). Admitted with diarrhea, generalized weakness, and right inguinal pain/mass -> right inguinal hernia. Cardiology was consulted for management of atrial fibrillation. Patient is also currently pending inguinal hernia surgical repair. Patient hypotensive with acute renal failure (Cr 4.6) on admission. 09/11/16 CT abd/pelvis: Bibasilar consolidation and small right pleural effusion. Large bilateral renal cysts. Large right inguinal hernia. Currently being treated for acute renal failure with IV fluids with improvement of Cr to 1.9 today. Currently on antibiotics for empiric treatment of pneumonia. 01/11/14 Lexiscan nuclear stress test: Negative for ischemia, LVEF 61% 09/12/16 Echocardiogram: Normal LV size and systolic function. Mild to mod MR. Mild TR. Mild AR. No pulmonary hypertension. Currently rate controlled with HR 80-90s on current oral meds. RECS: Continue atenolol 50 mg po bid, cardizem CD 240 mg po daily, and digoxin 0.125 mg po daily. Patient to have outpatient surgical follow-up. No plans for inpatient surgery for inguinal hernia repair. Will resume Xarelto 20 mg po daily. Patient may be discharged from cardiac standpoint. Will need outpatient follow- up in 1-2 weeks to ensure continued adequate rate control. Will see prn. Please call with questions.
[2016-09-21] MEDS ORDERED: RIVAROXABAN 20 MG TABLET PO SCH (13:45)
[2016-09-21] MEDS: TAMSULOSIN HCL 0.4 MG CAP.ER.24H (FP) PO SCH (21:16)
[2016-09-22] MEDS: APIXABAN 5 MG TABLET PO SCH ×2 (10:24→22:28)
[2016-09-22] MEDS: ATENOLOL 50 MG TABLET (FP) PO SCH ×2 (10:24→22:28)
[2016-09-22] MEDS: DIGOXIN 0.125 MG TABLET (FP) PO SCH (10:24)
[2016-09-22] MEDS: PANTOPRAZOLE 40 MG TABLET (FP) PO SCH (10:24)
[2016-09-22] MEDS: URSODIOL 300 MG CAPSULE PO SCH ×3 (10:24→16:57)
[2016-09-22] MEDS: MULTIVITAMINS (DAILY MVI) TABLET (FP) PO SCH (10:24)
[2016-09-22 12:20] LABS: BASOPHIL 0.8 % (0-2.0); EOSINOPHIL 0.8 % (0-4.5); MCH 29.4 pg (25.7-33.7); MCHC 33.8 g/dl (32.0-35.9); MEAN CELL VOLUME 86.9 fl (80-96); MEAN PLT VOLUME 9.2 fl (7.5-11.1); NEUTROPHILS 84.2 % (42.8-82.8); PLATELET COUNT 357 K/MM3 (134-434); RDW 14.8 % (11.9-15.9); WHITE BLOOD COUNT 10.6 K/mm3 (4.0-10.0)
--- NOTE | 2016-09-22 14:12 | DS ---
Physical Examination Vital Signs: Vital Signs Temperature 97.6 F 09/21/16 21:00 Pulse Rate 88 09/22/16 10:24 Respiratory Rate 18 09/22/16 10:00 Blood Pressure 103/59 09/22/16 06:45 O2 Sat by Pulse Oximetry (%) 97 09/22/16 10:00 Labs: CBC, BMP 09/22/16 11:50 09/21/16 05:35 Discharge Summary Reason For Visit: ARF/AFIB/DIARRHEA Current Active Problems Acute renal failure (Acute) Atrial fibrillation (Acute) Inguinal hernia, right (Acute) Sepsis (Acute) UTI (urinary tract infection) (Acute) Hospital Course: 86 year old male, with a significant past medical history of HTN, BPH, GERD, afib on xerolto, who presents to the emergency department with right inguinal hernia for 6 weeks. He ranks his pain a 8/10 in pain intensity. He also notes having a significant loss of appetite. Patient notes also having diarrhea for the past couple of days without any abdominal pain. He denies any recent fevers , chills, headache or dizziness. He denies any recent nausea, vomit, or constipation. Patient is a poor historian. - Past Medical History Cardiovascular: Yes: AFIB, HTN, Hyperlipdemia Gastrointestinal: Yes: GERD Renal/: Yes: BPH - Problems (1) Acute renal failure Assessment/Plan: IMPROVED MONITOR RENAL FUNCTION Code(s): N17.9 - ACUTE KIDNEY FAILURE, UNSPECIFIED Qualifiers: Acute renal failure type: unspecified Qualified Code(s): N17.9 - Acute kidney failure, unspecified (2) Atrial fibrillation Assessment/Plan: REFUSES XARELTO--CHANGE TO ELIQUIS MONITOR RATE LAST STRESS TEST 2014 NEGATIVE CARDIO ON BOARD--CLEARED FOR PROCEDURE Code(s): I48.91 - UNSPECIFIED ATRIAL FIBRILLATION Qualifiers: Atrial fibrillation type: chronic Qualified Code(s): I48.2 - Chronic atrial fibrillation (3) Diarrhea Code(s): R19.7 - DIARRHEA, UNSPECIFIED Qualifiers: Diarrhea type: unspecified type Qualified Code(s): R19.7 - Diarrhea, unspecified (4) Inguinal hernia, right Assessment/Plan: SURGICAL CONSULT NOTED --2ND OPINION REGARDING REPAIR NOTED--NO INTERVENTION Code(s): K40.90 - UNIL INGUINAL HERNIA, W/O OBST OR GANGR, NOT SPCF RECUR (5) Pneumonia Assessment/Plan: OFF ABX ID CONSULT NOTED CXR--ATELETASIS Code(s): J18.9 - PNEUMONIA, UNSPECIFIED ORGANISM (6) Sepsis Assessment/Plan: Microbiology 09/13/16 01:20 Stool Norovirus GI - Final 09/13/16 01:20 Stool Norovirus GII - Final 09/12/16 13:20 Blood - Peripheral Venous Blood Culture - Final NO GROWTH AFTER 5 DAYS INCUBATION 09/12/16 13:25 Blood - Peripheral Venous Blood Culture - Final NO GROWTH AFTER 5 DAYS INCUBATION 09/13/16 01:20 Stool Salmonella/Shigella Culture - Final NO GROWTH OF SALMONELLA OR SHIGELLA SPECIES OBTAINED 09/13/16 01:20 Stool Campylobacter Culture - Final NO GROWTH OF CAMPYLOBACTER SPECIES OBTAINED 09/13/16 01:20 Stool Yersinia Culture - Final 09/13/16 01:20 Stool Vibrio Culture - Final 09/13/16 01:20 Stool Escherichia coli 0157 Culture - Final NO GROWTH OF E COLI 0157 OBTAINED 09/12/16 18:45 Urine - Urine Clean Catch Urine Culture - Final Klebsiella Pneumoniae - Esbl 09/13/16 01:20 Stool Clostridium difficile Antigen (BREANA) - Final 09/13/16 01:20 Stool Clostridium difficile Toxin Assay - Final OFF IV ABX ID NOTED MONITOR Code(s): A41.9 - SEPSIS, UNSPECIFIED ORGANISM Condition: Improved - Instructions Referrals: Sera Lorenz MD [Primary Care Provider] - 1 Week Disposition: HOME - Home Medications Comprehensive Discharge Medication List: Ambulatory Orders Multivitamin [Multivitamins] 1 each PO DAILY 02/02/13 [place]-3 Acid Ethyl Esters [Lovaza -] 2,000 mg PO BID 02/02/13 Aspirin [ASA -] 81 mg PO DAILY #0 tab.chew 02/09/13 Multivitamins [Multivit ([facility])] 1 udtab PO DAILY #0 tab 02/09/13 Pantoprazole Sodium [Protonix -] 40 mg PO DAILY #0 tablet.ec 02/09/13 Polyethylene Glycol 3350 [Miralax 255 gm Btl -] 17 gm PO DAILY #1 bottle Tamsulosin HCl [Flomax -] 0.4 mg PO DAILY@0830 #0 cap.er.24h 02/09/13 Ursodiol [Actigal -] 300 mg PO TIDCM #0 capsule 02/09/13 Olodaterol HCl 0.7 drop OU DAILY 09/12/16 Acetaminophen [Tylenol .Regular Strength -] 650 mg PO Q4H PRN #0 tablet Apixaban [Eliquis -] 5 mg PO BID #60 tablet 09/22/16 Atenolol [Tenormin -] 50 mg PO BID #60 tablet 09/22/16 Digoxin [Lanoxin -] 0.125 mg PO DAILY #30 tablet 09/22/16 Diltiazem Cd [Cardizem Cd -] 240 mg PO DAILY #30 cap.cd.24h 09/22/16
[2016-09-22] MEDS: TAMSULOSIN HCL 0.4 MG CAP.ER.24H (FP) PO SCH (22:28)
[2016-09-23] MEDS: MULTIVITAMINS (DAILY MVI) TABLET (FP) PO SCH (09:13)
[2016-09-23] MEDS: DIGOXIN 0.125 MG TABLET (FP) PO SCH (09:14)
[2016-09-23] MEDS: PANTOPRAZOLE 40 MG TABLET (FP) PO SCH (09:14)
[2016-09-23] MEDS: URSODIOL 300 MG CAPSULE PO SCH ×3 (09:14→18:05)
[2016-09-23] MEDS: ATENOLOL 50 MG TABLET (FP) PO SCH ×2 (09:14→22:07)
[2016-09-23] MEDS: APIXABAN 5 MG TABLET PO SCH ×2 (09:14→22:07)
--- NOTE | 2016-09-23 10:56 | DS ---
Physical Examination Vital Signs: Vital Signs Temperature 97.2 F L 09/23/16 09:04 Pulse Rate 88 09/23/16 09:14 Respiratory Rate 20 09/23/16 09:04 Blood Pressure 131/81 09/23/16 09:04 O2 Sat by Pulse Oximetry (%) 98 09/23/16 09:00 Findings/Remarks: PT WANTS SURGERY Cardiovascular: Yes: Pulse Irregular, S1, S2 Respiratory: Yes: Regular, CTA Bilaterally Gastrointestinal: Yes: Normal Bowel Sounds, Soft. No: Tenderness Labs: CBC, BMP 09/22/16 11:50 09/21/16 05:35 Discharge Summary Reason For Visit: ARF/AFIB/DIARRHEA Current Active Problems Acute renal failure (Acute) Atrial fibrillation (Acute) Inguinal hernia, right (Acute) Sepsis (Acute) UTI (urinary tract infection) (Acute) Hospital Course: 86 year old male, with a significant past medical history of HTN, BPH, GERD, afib on xerolto, who presents to the emergency department with right inguinal hernia for 6 weeks. He ranks his pain a 8/10 in pain intensity. He also notes having a significant loss of appetite. Patient notes also having diarrhea for the past couple of days without any abdominal pain. He denies any recent fevers , chills, headache or dizziness. He denies any recent nausea, vomit, or constipation. Patient is a poor historian. - Past Medical History Cardiovascular: Yes: AFIB, HTN, Hyperlipdemia Gastrointestinal: Yes: GERD Renal/: Yes: BPH - Problems (1) Acute renal failure Assessment/Plan: IMPROVED MONITOR RENAL FUNCTION Code(s): N17.9 - ACUTE KIDNEY FAILURE, UNSPECIFIED Qualifiers: Acute renal failure type: unspecified Qualified Code(s): N17.9 - Acute kidney failure, unspecified (2) Atrial fibrillation Assessment/Plan: REFUSES XARELTO--CHANGE TO ELIQUIS MONITOR RATE LAST STRESS TEST 2013 NEGATIVE CARDIO ON BOARD--CLEARED FOR PROCEDURE Code(s): I48.91 - UNSPECIFIED ATRIAL FIBRILLATION Qualifiers: Atrial fibrillation type: chronic Qualified Code(s): I48.2 - Chronic atrial fibrillation (3) Diarrhea Code(s): R19.7 - DIARRHEA, UNSPECIFIED Qualifiers: Diarrhea type: unspecified type Qualified Code(s): R19.7 - Diarrhea, unspecified (4) Inguinal hernia, right Assessment/Plan: SURGICAL CONSULT NOTED --2ND OPINION REGARDING REPAIR NOTED--NO INTERVENTION Code(s): K40.90 - UNIL INGUINAL HERNIA, W/O OBST OR GANGR, NOT SPCF RECUR (5) Pneumonia Assessment/Plan: OFF ABX ID CONSULT NOTED CXR--ATELETASIS Code(s): J18.9 - PNEUMONIA, UNSPECIFIED ORGANISM (6) Sepsis Assessment/Plan: Microbiology 09/13/16 01:20 Stool Norovirus GI - Final 09/13/16 01:20 Stool Norovirus GII - Final 09/12/16 13:20 Blood - Peripheral Venous Blood Culture - Final NO GROWTH AFTER 5 DAYS INCUBATION 09/12/16 13:25 Blood - Peripheral Venous Blood Culture - Final NO GROWTH AFTER 5 DAYS INCUBATION 09/13/16 01:20 Stool Salmonella/Shigella Culture - Final NO GROWTH OF SALMONELLA OR SHIGELLA SPECIES OBTAINED 09/13/16 01:20 Stool Campylobacter Culture - Final NO GROWTH OF CAMPYLOBACTER SPECIES OBTAINED 09/13/16 01:20 Stool Yersinia Culture - Final 09/13/16 01:20 Stool Vibrio Culture - Final 09/13/16 01:20 Stool Escherichia coli 0157 Culture - Final NO GROWTH OF E COLI 0157 OBTAINED 09/12/16 18:45 Urine - Urine Clean Catch Urine Culture - Final Klebsiella Pneumoniae - Esbl 09/13/16 01:20 Stool Clostridium difficile Antigen (BREANA) - Final 09/13/16 01:20 Stool Clostridium difficile Toxin Assay - Final OFF IV ABX ID NOTED MONITOR Code(s): A41.9 - SEPSIS, UNSPECIFIED ORGANISM Condition: Improved Condition: Improved - Instructions Referrals: Sera Lorenz MD [Primary Care Provider] - 1 Week Disposition: HOME - Home Medications Comprehensive Discharge Medication List: Ambulatory Orders Multivitamin [Multivitamins] 1 each PO DAILY 02/02/13 [place]-3 Acid Ethyl Esters [Lovaza -] 2,000 mg PO BID 02/02/13 Aspirin [ASA -] 81 mg PO DAILY #0 tab.chew 02/09/13 Multivitamins [Multivit ([facility])] 1 udtab PO DAILY #0 tab 02/09/13 Pantoprazole Sodium [Protonix -] 40 mg PO DAILY #0 tablet.ec 02/09/13 Polyethylene Glycol 3350 [Miralax 255 gm Btl -] 17 gm PO DAILY #1 bottle Tamsulosin HCl [Flomax -] 0.4 mg PO DAILY@0830 #0 cap.er.24h 02/09/13 Ursodiol [Actigal -] 300 mg PO TIDCM #0 capsule 02/09/13 Olodaterol HCl 0.7 drop OU DAILY 09/12/16 Acetaminophen [Tylenol .Regular Strength -] 650 mg PO Q4H PRN #0 tablet Apixaban [Eliquis -] 5 mg PO BID #60 tablet 09/22/16 Atenolol [Tenormin -] 50 mg PO BID #60 tablet 09/22/16 Digoxin [Lanoxin -] 0.125 mg PO DAILY #30 tablet 09/22/16 Diltiazem Cd [Cardizem Cd -] 240 mg PO DAILY #30 cap.cd.24h 09/22/16
[2016-09-23] MEDS ORDERED: PT OWN MED DRAWER 7, Y5N ONE (22:03)
[2016-09-23] MEDS: TAMSULOSIN HCL 0.4 MG CAP.ER.24H (FP) PO SCH (22:07)
--- NOTE | 2016-09-24 08:01 | DS ---
Physical Examination Vital Signs: Vital Signs Temperature 98.2 F 09/24/16 02:00 Pulse Rate 91 H 09/24/16 05:52 Respiratory Rate 20 09/24/16 05:52 Blood Pressure 116/63 09/24/16 05:52 O2 Sat by Pulse Oximetry (%) 96 09/23/16 21:00 Findings/Remarks: WANTS HERNIA SURGERY Cardiovascular: Yes: Pulse Irregular, S1, S2 Respiratory: Yes: Regular, CTA Bilaterally Gastrointestinal: Yes: Normal Bowel Sounds, Soft Labs: CBC, BMP 09/22/16 11:50 09/21/16 05:35 Discharge Summary Reason For Visit: ARF/AFIB/DIARRHEA Current Active Problems Acute renal failure (Acute) Atrial fibrillation (Acute) Inguinal hernia, right (Acute) Sepsis (Acute) UTI (urinary tract infection) (Acute) Hospital Course: 86 year old male, with a significant past medical history of HTN, BPH, GERD, afib on xerolto, who presents to the emergency department with right inguinal hernia for 6 weeks. He ranks his pain a 8/10 in pain intensity. He also notes having a significant loss of appetite. Patient notes also having diarrhea for the past couple of days without any abdominal pain. He denies any recent fevers , chills, headache or dizziness. He denies any recent nausea, vomit, or constipation. Patient is a poor historian. - Past Medical History Cardiovascular: Yes: AFIB, HTN, Hyperlipdemia Gastrointestinal: Yes: GERD Renal/: Yes: BPH - Problems (1) Acute renal failure Assessment/Plan: IMPROVED MONITOR RENAL FUNCTION Code(s): N17.9 - ACUTE KIDNEY FAILURE, UNSPECIFIED Qualifiers: Acute renal failure type: unspecified Qualified Code(s): N17.9 - Acute kidney failure, unspecified (2) Atrial fibrillation Assessment/Plan: REFUSES XARELTO--CHANGE TO ELIQUIS MONITOR RATE LAST STRESS TEST 2014 NEGATIVE CARDIO ON BOARD--CLEARED FOR PROCEDURE Code(s): I48.91 - UNSPECIFIED ATRIAL FIBRILLATION Qualifiers: Atrial fibrillation type: chronic Qualified Code(s): I48.2 - Chronic atrial fibrillation (3) Diarrhea Code(s): R19.7 - DIARRHEA, UNSPECIFIED Qualifiers: Diarrhea type: unspecified type Qualified Code(s): R19.7 - Diarrhea, unspecified (4) Inguinal hernia, right Assessment/Plan: SURGICAL CONSULT NOTED --2ND OPINION REGARDING REPAIR NOTED--NO INTERVENTION Code(s): K40.90 - UNIL INGUINAL HERNIA, W/O OBST OR GANGR, NOT SPCF RECUR (5) Pneumonia Assessment/Plan: OFF ABX ID CONSULT NOTED CXR--ATELETASIS Code(s): J18.9 - PNEUMONIA, UNSPECIFIED ORGANISM (6) Sepsis Assessment/Plan: Microbiology 09/13/16 01:20 Stool Norovirus GI - Final 09/13/16 01:20 Stool Norovirus GII - Final 09/12/16 13:20 Blood - Peripheral Venous Blood Culture - Final NO GROWTH AFTER 5 DAYS INCUBATION 09/12/16 13:25 Blood - Peripheral Venous Blood Culture - Final NO GROWTH AFTER 5 DAYS INCUBATION 09/13/16 01:20 Stool Salmonella/Shigella Culture - Final NO GROWTH OF SALMONELLA OR SHIGELLA SPECIES OBTAINED 09/13/16 01:20 Stool Campylobacter Culture - Final NO GROWTH OF CAMPYLOBACTER SPECIES OBTAINED 09/13/16 01:20 Stool Yersinia Culture - Final 09/13/16 01:20 Stool Vibrio Culture - Final 09/13/16 01:20 Stool Escherichia coli 0157 Culture - Final NO GROWTH OF E COLI 0157 OBTAINED 09/12/16 18:45 Urine - Urine Clean Catch Urine Culture - Final Klebsiella Pneumoniae - Esbl 09/13/16 01:20 Stool Clostridium difficile Antigen (BREANA) - Final 09/13/16 01:20 Stool Clostridium difficile Toxin Assay - Final OFF IV ABX ID NOTED MONITOR Code(s): A41.9 - SEPSIS, UNSPECIFIED ORGANISM Condition: Improved - Instructions Referrals: Sera Lorenz MD [Primary Care Provider] - 1 Week Disposition: HOME - Home Medications Comprehensive Discharge Medication List: Ambulatory Orders Multivitamin [Multivitamins] 1 each PO DAILY 02/02/13 [place]-3 Acid Ethyl Esters [Lovaza -] 2,000 mg PO BID 02/02/13 Aspirin [ASA -] 81 mg PO DAILY #0 tab.chew 02/09/13 Multivitamins [Multivit ([facility] Formul[facility])] 1 udtab PO DAILY #0 tab 02/09/13 Pantoprazole Sodium [Protonix -] 40 mg PO DAILY #0 tablet.ec 02/09/13 Polyethylene Glycol 3350 [Miralax 255 gm Btl -] 17 gm PO DAILY #1 bottle Tamsulosin HCl [Flomax -] 0.4 mg PO DAILY@0830 #0 cap.er.24h 02/09/13 Ursodiol [Actigal -] 300 mg PO TIDCM #0 capsule 02/09/13 Olodaterol HCl 0.7 drop OU DAILY 09/12/16 Acetaminophen [Tylenol .Regular Strength -] 650 mg PO Q4H PRN #0 tablet Apixaban [Eliquis -] 5 mg PO BID #60 tablet 09/22/16 Atenolol [Tenormin -] 50 mg PO BID #60 tablet 09/22/16 Digoxin [Lanoxin -] 0.125 mg PO DAILY #30 tablet 09/22/16 Diltiazem Cd [Cardizem Cd -] 240 mg PO DAILY #30 cap.cd.24h 09/22/16
[2016-09-24] MEDS: URSODIOL 300 MG CAPSULE PO SCH ×3 (08:40→18:18)
[2016-09-24 09:13] LABS: ALBUMIN 2.5 g/dl (3.4-5.0); ALK PHOS 130 U/L (45-117); ANION GAP 6 (8-16); BILIRUBIN,TOTAL 1.1 mg/dL (0.2-1.0); CALCIUM 8.8 mg/dL (8.5-10.1); CO2 29 mmol/L (21-32); GLUCOSE,RANDOM 104 mg/dL (74-106); SGOT/AST 10 U/L (15-37); SGPT/ALT 17 U/L (12-78); TOT PROT 6.5 g/dl (6.4-8.2)
[2016-09-24] MEDS ORDERED: PT OWN MED DRAWER 7, Y5N ONE (09:17)
[2016-09-24] MEDS: ATENOLOL 50 MG TABLET (FP) PO SCH ×2 (09:48→21:18)
[2016-09-24] MEDS: DIGOXIN 0.125 MG TABLET (FP) PO SCH (09:48)
[2016-09-24] MEDS: MULTIVITAMINS (DAILY MVI) TABLET (FP) PO SCH (09:48)
[2016-09-24] MEDS: APIXABAN 5 MG TABLET PO SCH ×2 (09:48→21:18)
[2016-09-24] MEDS: PANTOPRAZOLE 40 MG TABLET (FP) PO SCH (09:49)
[2016-09-24 14:29] LABS: BASOPHIL 1.1 % (0-2.0); EOSINOPHIL 1.4 % (0-4.5); MCH 29.8 pg (25.7-33.7); MCHC 33.8 g/dl (32.0-35.9); MEAN CELL VOLUME 88.1 fl (80-96); MEAN PLT VOLUME 10.1 fl (7.5-11.1); NEUTROPHILS 77.4 % (42.8-82.8); PLATELET COUNT 424 K/MM3 (134-434); RDW 15.4 % (11.9-15.9); WHITE BLOOD COUNT 9.3 K/mm3 (4.0-10.0)
[2016-09-24] MEDS: TAMSULOSIN HCL 0.4 MG CAP.ER.24H (FP) PO SCH (21:18)
[2016-09-25] MEDS: URSODIOL 300 MG CAPSULE PO SCH ×2 (08:13→12:22)
--- NOTE | 2016-09-25 08:28 | DS ---
Physical Examination Vital Signs: Vital Signs Temperature 98.8 F 09/25/16 06:00 Pulse Rate 69 09/25/16 06:00 Respiratory Rate 18 09/25/16 06:00 Blood Pressure 111/65 09/25/16 06:00 O2 Sat by Pulse Oximetry (%) 99 09/24/16 21:00 Cardiovascular: Yes: Pulse Irregular, S1, S2 Respiratory: Yes: Regular, CTA Bilaterally Gastrointestinal: Yes: Normal Bowel Sounds, Soft. No: Tenderness Labs: CBC, BMP 09/24/16 08:20 09/24/16 08:20 Discharge Summary Reason For Visit: ARF/AFIB/DIARRHEA Current Active Problems Acute renal failure (Acute) Atrial fibrillation (Acute) Inguinal hernia, right (Acute) Sepsis (Acute) UTI (urinary tract infection) (Acute) Hospital Course: 86 year old male, with a significant past medical history of HTN, BPH, GERD, afib on xerolto, who presents to the emergency department with right inguinal hernia for 6 weeks. He ranks his pain a 8/10 in pain intensity. He also notes having a significant loss of appetite. Patient notes also having diarrhea for the past couple of days without any abdominal pain. He denies any recent fevers , chills, headache or dizziness. He denies any recent nausea, vomit, or constipation. Patient is a poor historian. - Past Medical History Cardiovascular: Yes: AFIB, HTN, Hyperlipdemia Gastrointestinal: Yes: GERD Renal/: Yes: BPH - Problems (1) Acute renal failure Assessment/Plan: IMPROVED MONITOR RENAL FUNCTION Code(s): N17.9 - ACUTE KIDNEY FAILURE, UNSPECIFIED Qualifiers: Acute renal failure type: unspecified Qualified Code(s): N17.9 - Acute kidney failure, unspecified (2) Atrial fibrillation Assessment/Plan: REFUSES XARELTO--CHANGE TO ELIQUIS MONITOR RATE LAST STRESS TEST 2014 NEGATIVE CARDIO ON BOARD--CLEARED FOR PROCEDURE Code(s): I48.91 - UNSPECIFIED ATRIAL FIBRILLATION Qualifiers: Atrial fibrillation type: chronic Qualified Code(s): I48.2 - Chronic atrial fibrillation (3) Diarrhea Code(s): R19.7 - DIARRHEA, UNSPECIFIED Qualifiers: Diarrhea type: unspecified type Qualified Code(s): R19.7 - Diarrhea, unspecified (4) Inguinal hernia, right Assessment/Plan: SURGICAL CONSULT NOTED --2ND OPINION REGARDING REPAIR NOTED--NO INTERVENTION Code(s): K40.90 - UNIL INGUINAL HERNIA, W/O OBST OR GANGR, NOT SPCF RECUR (5) Pneumonia Assessment/Plan: OFF ABX ID CONSULT NOTED CXR--ATELETASIS Code(s): J18.9 - PNEUMONIA, UNSPECIFIED ORGANISM (6) Sepsis Assessment/Plan: Microbiology 09/13/16 01:20 Stool Norovirus GI - Final 09/13/16 01:20 Stool Norovirus GII - Final 09/12/16 13:20 Blood - Peripheral Venous Blood Culture - Final NO GROWTH AFTER 5 DAYS INCUBATION 09/12/16 13:25 Blood - Peripheral Venous Blood Culture - Final NO GROWTH AFTER 5 DAYS INCUBATION 09/13/16 01:20 Stool Salmonella/Shigella Culture - Final NO GROWTH OF SALMONELLA OR SHIGELLA SPECIES OBTAINED 09/13/16 01:20 Stool Campylobacter Culture - Final NO GROWTH OF CAMPYLOBACTER SPECIES OBTAINED 09/13/16 01:20 Stool Yersinia Culture - Final 09/13/16 01:20 Stool Vibrio Culture - Final 09/13/16 01:20 Stool Escherichia coli 0157 Culture - Final NO GROWTH OF E COLI 0157 OBTAINED 09/12/16 18:45 Urine - Urine Clean Catch Urine Culture - Final Klebsiella Pneumoniae - Esbl 09/13/16 01:20 Stool Clostridium difficile Antigen (BREANA) - Final 09/13/16 01:20 Stool Clostridium difficile Toxin Assay - Final OFF IV ABX ID NOTED MONITOR Code(s): A41.9 - SEPSIS, UNSPECIFIED ORGANISM Condition: Improved - Instructions Referrals: Sera Lorenz MD [Primary Care Provider] - 1 Week Disposition: HOME - Home Medications Comprehensive Discharge Medication List: Ambulatory Orders Multivitamin [Multivitamins] 1 each PO DAILY 02/02/13 [place]-3 Acid Ethyl Esters [Lovaza -] 2,000 mg PO BID 02/02/13 Aspirin [ASA -] 81 mg PO DAILY #0 tab.chew 02/09/13 Multivitamins [Multivit ([facility])] 1 udtab PO DAILY #0 tab 02/09/13 Pantoprazole Sodium [Protonix -] 40 mg PO DAILY #0 tablet.ec 02/09/13 Polyethylene Glycol 3350 [Miralax 255 gm Btl -] 17 gm PO DAILY #1 bottle Tamsulosin HCl [Flomax -] 0.4 mg PO DAILY@0830 #0 cap.er.24h 02/09/13 Ursodiol [Actigal -] 300 mg PO TIDCM #0 capsule 02/09/13 Olodaterol HCl 0.7 drop OU DAILY 09/12/16 Acetaminophen [Tylenol .Regular Strength -] 650 mg PO Q4H PRN #0 tablet Apixaban [Eliquis -] 5 mg PO BID #60 tablet 09/22/16 Atenolol [Tenormin -] 50 mg PO BID #60 tablet 09/22/16 Digoxin [Lanoxin -] 0.125 mg PO DAILY #30 tablet 09/22/16 Diltiazem Cd [Cardizem Cd -] 240 mg PO DAILY #30 cap.cd.24h 09/22/16
[2016-09-25 08:35] VITALS: BP 102/64; PULSE 90; TEMP 97.7
[2016-09-25] MEDS: ATENOLOL 50 MG TABLET (FP) PO SCH (09:46)
[2016-09-25] MEDS: DIGOXIN 0.125 MG TABLET (FP) PO SCH (09:46)
[2016-09-25] MEDS: APIXABAN 5 MG TABLET PO SCH (09:46)
[2016-09-25] MEDS: MULTIVITAMINS (DAILY MVI) TABLET (FP) PO SCH (09:46)
[2016-09-25] MEDS: PANTOPRAZOLE 40 MG TABLET (FP) PO SCH (09:47)
== END 2016-09-25 15:37 | disposition home or self-care (01) | DRG 871 ==
LOC: JER 14:04 → JERBED 19:47 → J4S 23:12 → JERBED 09-17 00:55 → J4W 09-17 00:56 → JERBED 09-17 00:57 → J4S 09-17 00:58 → JERBED 09-17 01:52 → J4W 09-17 01:54
PROVIDERS: ADMIT Family Medicine; ATTEND Family Medicine
DX: A41.9 Sepsis, unspecified organism (principal); J18.9 Pneumonia, unspecified organism; N17.9 Acute kidney failure, unspecified; J90 Pleural effusion, not elsewhere classified; J98.11 Atelectasis; N39.0 Urinary tract infection, site not specified; I48.2 Chronic atrial fibrillation; N28.1 Cyst of kidney, acquired; K40.90 Unilateral inguinal hernia, without obstruction or gangrene, not specified as recurrent; N40.0 Benign prostatic hyperplasia without lower urinary tract symptoms; K21.9 Gastro-esophageal reflux disease without esophagitis; E78.5 Hyperlipidemia, unspecified; R19.7 Diarrhea, unspecified; B96.1 Klebsiella pneumoniae [K. pneumoniae] as the cause of diseases classified elsewhere
CPT/HCPCS: 36415; 71010-TC; 71020-TC; 74176-TC; 80053; 81003; 81015; 82272; 85025; 85610; 86850; 86900; 86901; 87040; 87045; 87046; 87086; 87186; 87324; 87449; 87798; 93005; 93010; 93306-TC; 97116-GP; 97161-GP; 99285-25; G0008; J3480; Q2037; Q9967